=== PATIENT | male | born 1960 | race Caucasian/White ===

== ENCOUNTER 2020-11-28 10:56 | Observation (INO) | payer OTHER, SELFPAY ==
[2020-11-28 11:06] VITALS: BP 103/69; BP 104/69; PULSE 73; PULSE 76; RESP 20; RESP 22; TEMP 36.7; O2SAT 99
[2020-11-28 11:07] VITALS: BMI 33.0
--- NOTE | 2020-11-28 11:08 | USCV_ITS ---
Cosmo Blanc Age: 60 Gender: M : 1960 Exam Date: 11/28/2020 12:02 Ordering Phys: Steven Palomo MD Technologist: Ryland Beaver Exam Location: [facility] [place] Indication: AFB BP: 104 / 69 HR: 81 Rhythm: Sinus Technical Quality: Fair MEASUREMENTS (Male / Female) Normal Values 2D ECHO LV Diastolic Diameter PLAX 4.2 cm 4.2 - 5.9 / 3.9 - 5.3 cm LV Systolic Diameter PLAX 2.7 cm IVS Diastolic Thickness 1.3 cm 0.6 - 1.0 / 0.6 - 0.9 cm IVS Systolic Thickness 1.5 cm LVPW Diastolic Thickness 1.5 cm 0.6 - 1.0 / 0.6 - 0.9 cm LVPW Systolic Thickness 2.1 cm LVOT Diameter 2.1 cm LV Ejection Fraction 2D Teich 65.4 % LV Ejection Fraction MOD 2C 60.4 % LV Ejection Fraction 2C AL 61.6 % LA Diameter 3.6 cm LA Width 3.6 cm LA Height 5.3 cm RA Width 4.3 cm RA Height 4.6 cm Aorta at Sinotubular Diameter 3.0 cm M-MODE LV Diastolic Diameter MM 6.1 cm 4.2 - 5.9 / 3.9 - 5.3 cm LV Systolic Diameter MM 3.9 cm LV Ejection Fraction MM Teich 66.1 % IVS Diastolic Thickness MM 1.0 cm 0.6 - 1.0 / 0.6 - 0.9 cm IVS Systolic Thickness MM 1.9 cm LVPW Diastolic Thickness MM 1.5 cm 0.6 - 1.0 / 0.6 - 0.9 cm LVPW Systolic Thickness MM 2.0 cm Aortic Annulus Diameter 3.6 cm LA Ao Ratio MM 1.0 MV E Point Septal Separation 1.3 cm DOPPLER AV Peak Velocity 87.0 cm/s LVOT Peak Velocity 96.0 cm/s AV Area Cont Eq vti 4.1 cm squared AV Area Cont Eq pk 3.7 cm squared MV Area PHT 3.5 cm squared Mitral E to A Ratio 3.1 MV E' Velocity 41.5 cm/s Mitral E to MV E' Ratio 13.7 Mitral E to LV E' Lateral Ratio 12.6 Mitral E to LV E' Septal Ratio 15.3 TR Peak Velocity 69.0 cm/s TR Peak Gradient 1.9 mmHg Right Atrial Pressure 3.0 mmHg Pulmonary Artery Systolic Pressu 4.9 mmHg PV Peak Velocity 74.0 cm/s RV Acceleration Time 0.1 s RV Ejection Time 0.3 s RV AcT/ET 0.4 FINDINGS Left Ventricle Normal left ventricular cavity size. Normal left ventricular systolic function. No regional wall motion abnormalities. Left ventricular ejection fraction is estimated at 55 %. The presence of atrial fibrillation diastolic function cannot be assessed accurately. Right Ventricle The right ventricle is normal in size and function. Right Atrium The right atrium is normal in size. Left Atrium The left atrium is normal in size. Mitral Valve Structurally normal mitral valve without significant stenosis or prolapse. There is no mitral regurgitation. Aortic Valve Moderate aortic valve calcification. No aortic valve regurgitation. No aortic valve stenosis. Tricuspid Valve Structurally normal tricuspid valve without significant stenosis or regurgitation. Pulmonary artery systolic pressure is normal. Pulmonic Valve Structurally normal pulmonic valve without significant stenosis. There is no pulmonic regurgitation. Pericardium Normal pericardium without effusion. Aorta Normal ascending aorta dimension. CONCLUSIONS 1-Normal left ventricular cavity size. Normal left ventricular systolic function. No regional wall motion abnormalities. Left ventricular ejection fraction is estimated at 55 %. The presence of atrial fibrillation diastolic function cannot be assessed accurately. 2-Moderate aortic valve calcification. No aortic valve regurgitation. No aortic valve stenosis. 3-There is no pericardial effusion. 4-Pulmonary artery systolic pressure is within normal limits. 5-There are no prior echocardiogram studies to compare. Davis Anderson MD (Electronically Signed) Final Date: 28 November 2020 16:49 S
--- NOTE | 2020-11-28 11:09 | ECG_ITS ---
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 Measurements Intervals [place] Rate: 84 P: [place]: QRS: 54 QRSD: 89 T: 3 QT: 338 QTc: 401 Interpretive Statements ATRIAL FIBRILLATION NONSPECIFIC T-WAVE ABNORMALITY No previous ECG available for comparison Electronically Signed On 11-28-2020 16:02:47 ANIMAL SERVICES OFFICER by Vinicio Mares M.D. [id number]
--- NOTE | 2020-11-28 11:26 | PM.HP ---
Providers/Chief Complaint Admitting Physician: Steven Palomo MD Primary Care Provider: Bryant Carlin Chief Complaint: Afib with RVR History of Present Illness Cosmo Blanc is a 60 year old male transferred from [facility] in [place] with history of syncope. Patient is not for sure exactly when it happened but believes it was likely around 415 or 30 this morning. He denies any chest pain or palpitations. Upon arriving into the emergency department he was noted to be in atrial fibrillation with rapid ventricular rate. Patient reports a history of atrial fibrillation for quite some time. He denies being on any anticoagulation and relates he is usually well controlled on metoprolol but at his last visit with the [place] doctor his heart rate was elevated and irregular. Currently he denies any symptoms. While in the emergency department he received 2 doses of Cardizem and was ultimately put on a Cardizem drip. He remains in atrial fibrillation but on arrival here his heart rate was mid 70s. He denies any history of myocardial infarction. He believes his last echocardiogram was over 5 years ago. He denies any personal history of Covid or exposure to it. Review of Systems General: Reports: 10 or more systems reviewed and unremarkable except in HPI and below Const: Denies: fever(s) Eyes: Denies: change in vision ENMT: Denies: throat pain Card: Reports: syncope; Denies: chest pain Resp: Denies: dyspnea GI: Denies: abdominal pain : Denies: flank pain Musc: Denies: neck pain Skin/Breast: Denies: rash Neuro: Denies: headache(s) Psych: Denies: anxiety Endo: Denies: polyuria Lobo/Lymph: Denies: easy bruising All/Imm: Denies: urticaria Medications/Allergies Home Medications Medication Instructions Recorded Confirmed Last Taken Type metoprolol tartrate 12.5 mg PO BID 11/28/20 11/28/20 11/27/20 20:30 History Allergies Allergy/AdvReac Type Severity Reaction Status Date / Time Penicillins Allergy ALGY-Anaphy Verified 11/28/20 11:14 laxis PFSH Acute PFSH: Medical History (Updated 11/28/20 @ 11:28 by Steven Palomo MD) Atrial fibrillation Surgical History (Updated 11/28/20 @ 11:28 by Steven Palomo MD) History of cholecystectomy Family History (Updated 11/28/20 @ 11:28 by Steven Palomo MD) Other CAD (coronary artery disease) Cancer Social History (Updated 11/28/20 @ 11:29 by Steven Palomo MD) Smoking and tobacco status: current every day smoker smokeless tobacco Alcohol intake: former Vitals/I&O/Wt Last Vital Signs Temp 98.1 F 11/28/20 11:06 Pulse 76 11/28/20 11:06 Resp 22 H 11/28/20 11:06 BP 104/69 11/28/20 11:06 Pulse Ox 99 11/28/20 11:06 Weight last 48 hrs Weight 123.377 kg Physical Exam Narrative: EXAM NARRATIVE: General exam is a white male in no apparent distress HEENT: Pupils equally round. Oropharynx clear. Neck is supple no lymphadenopathy or thyromegaly Cardiovascular irregular, irregular without murmur Lungs clear no wheezing or crackles Abdomen is soft, positive bowel sounds. No obvious organomegaly was deferred Extremities no cyanosis clubbing or edema, cap refill brisk Skin no rash Neuro no obvious focal deficits. Data Other data: INR 1.0. White blood cell count 7.7, hemoglobin 15.1, platelet count 183 Sodium 138, potassium 4.4, chloride 102, bicarb 25, BUN 17, creatinine 1.1, glucose 121, LFTs normal, BNP 1700, troponin IX Covid antigen negative EKG demonstrates atrial fibrillation, normal axis, rate of 145, nonspecific ST-T wave changes Chest x-ray negative A&P Assessment and plan (1) Atrial fibrillation: Transition from Cardizem drip to metoprolol 25 mg twice daily Telemetry Check magnesium, TSH Check echocardiogram Full anticoagulation currently, and will discuss with patient CHADS scoring at discharge. Status: Acute Additional A&P Information Full code Lovenox will suffice for DVT prophylaxis Attestations Medical Necessity Statement*: Will need less than 2 midnight stay for evaluation and treatment of patient with rapid ventricular rate as well as syncope. Time Spent in Patient Care: Greater than 35 minutes Coding Level of Care Code Acute Cloth Hand for g Fwd Diagnoses Atrial fibrillation I48.91
[2020-11-28] MEDS: metoprolol tartrate 25 mg Tablet PO ×2 (11:49→20:38)
[2020-11-28 12:00] VITALS: BP 104/69; PULSE 84; RESP 16; TEMP 36.8; O2SAT 95
[2020-11-28 12:59] LABS: Troponin(5th) Baseline 9 ng/L (0-15)
[2020-11-28 13:08] LABS: Magnesium 2.1 mg/dL (1.7-2.3)
--- NOTE | 2020-11-28 13:09 | ECG_ITS ---
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 Measurements Intervals [place] Rate: 86 P: [place]: QRS: 69 QRSD: 90 T: 31 QT: 357 QTc: 429 Interpretive Statements ATRIAL FIBRILLATION Compared to ECG 11/28/2020 11:50:37 T-wave abnormality no longer present Electronically Signed On 11-28-2020 16:04:42 BLOCK ENGRAVER by Vinicio Mares M.D. [email or web address] The Fireglendale [email or web address] medical [email or web address]/[id number]
[2020-11-28 16:00] VITALS: BP 111/79; PULSE 69; RESP 19; TEMP 36.7; O2SAT 96
[2020-11-28 16:05] LABS: Troponin 5 2HR 9.69 ng/L (0-15); Troponin 5 2HR Delta 0.69 ABS# (0-10)
--- NOTE | 2020-11-28 17:09 | ECG_ITS ---
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 Measurements Intervals [place] Rate: 92 P: [place]: QRS: 48 QRSD: 91 T: 29 QT: 345 QTc: 427 Interpretive Statements ATRIAL FIBRILLATION NONSPECIFIC T-WAVE ABNORMALITY Compared to ECG 11/28/2020 14:02:29 T-wave abnormality now present Electronically Signed On 11-28-2020 17:53:19 DRESS CUTTER by Vinicio Mares M.D. [email or web address] Seismic Technologiesmercy health st. anne hospitalGT Solar/store/[id number]
--- NOTE | 2020-11-28 19:35 | ECG_ITS ---
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 Measurements Intervals [place] Rate: 66 P: 33 PA: 187 QRS: 35 QRSD: 94 T: 31 QT: 388 QTc: 407 Interpretive Statements SINUS RHYTHM POSSIBLE LEFT ATRIAL ENLARGEMENT [-0.1mV P WAVE IN V1/V2] Compared to ECG 11/28/2020 17:46:32 Atrial fibrillation no longer present T-wave abnormality no longer present Electronically Signed On 11-30-2020 19:27:47 MARKETING ANALYST by Sherrell Davila M.D. [id number] f
[2020-11-28 20:00] VITALS: BP 107/58; PULSE 76; PULSE 96; RESP 19; TEMP 36.6; O2SAT 97
[2020-11-28 21:15] VITALS: PULSE 66
[2020-11-29] VITALS (7 sets, daily range): BP systolic 97–128; BP diastolic 57–75; PULSE 62–76; RESP 13–19; TEMP 36.6–36.9; O2SAT 93–97
--- NOTE | 2020-11-29 00:34 | PC.NURSE ---
PT IS RESTING IN BED. PT DENIES PAIN AT THIS TIME. WILL CONTINUE TO MONITOR.
[2020-11-29 04:03] LABS: Basophils # 0.1 10^3/uL (0.0-0.1); Eosinophils # 0.2 10^3/uL (0.0-0.8); Hematocrit 39.8 % (42.0-52.0); Hemoglobin 13.2 g/dL (11.7-16.6); Lymphocytes # 1.9 10^3/uL (0.8-4.8); Lymphocytes % 27.1 %; Mean Corpuscular HGB Conc 33.2 g/dL (30.0-36.0); Mean Corpuscular Hemoglobin 31.4 pg (28.0-34.0); Mean Corpuscular Volume 94.5 fL (80-94); Mean Platelet Volume 11.6 fL (7.4-10.4); Monocytes # 0.5 10^3/uL (0.2-0.9); Monocytes % 7.7 %; Neutrophils # 4.26 10^3/uL (1.8-7.7); Neutrophils % 60.5 %; Nucleated Red Blood Cells % 0 %; Platelet Count 156 10^3/cmm (130-400); Red Blood Count 4.21 10^6/uL (4.1-5.3); Red Cell Distribution Width 13.1 % (12.1-15.1)
[2020-11-29 04:33] LABS: Alanine Aminotransferase 17 U/L (0-41); Albumin Level 3.5 g/dL (3.5-5.2); Alkaline Phosphatase 50 IU/L (40-130); Anion Gap 12.3 (5-19); Aspartate Amino Transferase 13 U/L (0-40); Blood Urea Nitrogen 23 mg/dL (6-20); Calcium 8.7 mg/dL (8.5-10.5); Carbon Dioxide 27 mmol/L (22-29); Chloride 103 mmol/L (98-107); Globulin 2.5 g/dL (1.3-4.6); Glomerular Filtration Rate 76.7 mL/min (90-130); Glucose 106 mg/dL (65-115); Osmolality Calculated 290 mOsm/kg (285-295); Potassium 4.3 mmol/L (3.5-5.1); Sodium 138 mmol/L (136-145); Total Bilirubin 0.5 mg/dL (0.15-1.2)
--- NOTE | 2020-11-29 06:54 | PC.NURSE ---
PT HAD AN UNEVENTFUL NIGHT. PT DENIES PAIN. WILL CONTINUE TO MONITOR.
[2020-11-29] MEDS: metoprolol tartrate 25 mg Tablet PO (08:04)
[2020-11-29] MEDS: acetaminophen 325 mg Tablet 650 MG PO (08:08)
--- NOTE | 2020-11-29 09:15 | P.DS_ITS ---
Discharge Providers Date of Admission: 11/28/20 10:56 Date of Discharge: November 29, 2020 Attending Provider at Admission: Steven Palomo MD Attending Provider at Discharge: Steven Palomo MD Primary Care Provider: Bryant Carlin Diagnoses at Discharge Discharge Diagnosis (1) Atrial fibrillation: Status: Acute Reason for Visit Reason for Visit: Afib with RVR Hospital Course Hospital Course Cosmo is a 60-year-old white male who presented to the hospital as a transfer from [facility] with atrial fibrillation with rapid ventricular rate noted after a syncopal episode. In the emergency department he was given Cardizem and placed on a Cardizem drip. On arrival here heart rate was approximately 70s on the Cardizem drip. He was converted to metoprolol 25 mg twice daily, twice his usual home dose. Patient has a past history of atrial fibrillation, not on anticoagulation. With this his heart rhythm was controlled, and he ultimately converted to normal sinus rhythm which was noted on day of discharge November 29 with a heart rate of 60. He denied any dizziness when up and around. No significant arrhythmias other than atrial fibrillation were noted overnight prior to his spontaneous cardioversion. His [id number] score is 0. He was discharged on metoprolol, and aspirin daily, and follow-up with his primary care provider as well as [place] frozen food selector. It should be noted that his TSH was normal on admission as well as electrolytes including magnesium. Echocardiogram done demonstrated preserved EF with no wall motion abnormalities. Physical Exam Narrative: EXAM NARRATIVE: General exam no apparent distress Cardiovascular regular in rhythm without murmur Lungs clear Abdomen soft with positive bowel sounds Extremities no cyanosis clubbing or edema Discharge Data Data Completed and Pending: Completed Studies During Hospitalization Category Date Time Status CV echo complete* [id number] Routine Ultrasound 11/28/20 11:08 Completed Labs from last 24 hours 11/29/20 11/29/20 11/28/20 03:34 03:34 15:00 WBC 7.0 RBC 4.21 Hgb 13.2 Hct 39.8 L MCV 94.5 H MCH 31.4 MCHC 33.2 RDW 13.1 Plt Count 156 MPV 11.6 H Neut % (Auto) 60.5 Lymph % (Auto) 27.1 Storey % (Auto) 7.7 Eos % (Auto) 3.0 Baso % (Auto) 1.0 Neut # (Auto) 4.26 Lymph # (Auto) 1.9 Storey # (Auto) 0.5 Eos # (Auto) 0.2 Baso # (Auto) 0.1 Nucleated RBC % (a uto) 0 Nucleated RBCs # 0.0 Sodium 138 Potassium 4.3 Chloride 103 Carbon Dioxide 27 Anion Gap 12.3 BUN 23 H Creatinine 1.0 GFR Calculation 76.7 L Glucose 106 Calculated Osmolal ity 290 Calcium 8.7 Magnesium 2.0 Total Bilirubin 0.5 AST 13 ALT 17 Alkaline Phosphata se 50 Troponin T Baselin e Troponin T 120 Min [place] lions 9.69 Delta Troponin T 0.69 Total Protein 6.0 L Albumin 3.5 Globulin 2.5 TSH 11/28/20 11/28/20 12:22 12:22 WBC RBC Hgb Hct MCV MCH MCHC RDW Plt Count MPV Neut % (Auto) Lymph % (Auto) Storey % (Auto) Eos % (Auto) Baso % (Auto) Neut # (Auto) Lymph # (Auto) Storey # (Auto) Eos # (Auto) Baso # (Auto) Nucleated RBC % (a uto) Nucleated RBCs # Sodium Potassium Chloride Carbon Dioxide Anion Gap BUN Creatinine GFR Calculation Glucose Calculated Osmolal ity Calcium Magnesium 2.1 Total Bilirubin AST ALT Alkaline Phosphata se Troponin T Baselin e 9 Troponin T 120 Min [place] lions Delta Troponin T Total Protein Albumin Globulin TSH 0.70 Vitals: Last Vital Signs Temp 98.5 F 11/29/20 07:28 Pulse 63 11/29/20 07:28 Resp 18 11/29/20 07:28 BP 128/75 11/29/20 07:28 Pulse Ox 95 11/29/20 07:28 Discharge Plan Discharge Patient Disposition: Home Condition: Stable Prescriptions: New metoprolol tartrate 25 mg Tablet 25 mg PO BID@0900,2100 Qty: 60 RF: 0 aspirin 81 mg tablet,chewable 81 mg PO DAILY Qty: 30 RF: 0 Discontinued metoprolol tartrate 25 mg Tablet 12.5 mg PO BID RF: 0 Discharge Orders: Discharge Order (Routine); Ordered 11/29/20 Ordered By: Steven Palomo Referrals: Bryant Carlin [Primary Care Provider] - 4-7 days Discharge Diet: Regular Discharge Activity: Increase activity as tolerated Activity Restrictions/Additional Instructions: Reduce caffeine, avoid stress, no alcohol. Your [facility] doctor to arrange follow-up with cardiology regarding your atrial fibrillation Discharge Attestations Time Spent in Discharge Care*: greater than 30 min Quality Metrics Clinical Quality Measures During this hospital stay, did patient experience: None Coding Level of Care Code Acute Shipping Track Supervisor for Rolfg Fwd Diagnoses Atrial fibrillation I48.91
--- NOTE | 2020-11-29 11:17 | PC.NURSE ---
Ambulation Pt has been up and moing around in room and hallways. Pt denies any dizziness, pain or sob. Pt HR upon this activity ranges from 70s to 80s in SR.
--- NOTE | 2020-11-29 11:19 | PC.NURSE ---
Discharge to home Instructed pt the importance of following up with his [facility] doctor and to take the meds as prescribed. Informed pt to check and record his BP and HR twice a day at home. Discuss to pt prevention of syncope. Informed pt to monitor any worsening of symptoms and to notify his provider for any concerns. Pt verbalizes understanding. Discharge packet provided to pt.
--- NOTE | 2020-11-29 17:23 | PC.RESP ---
Smoking Cessation information sent to patient.
== END 2020-11-29 11:19 | disposition home or self-care (01) ==
PROVIDERS: Admitting Provider Internal Medicine; PCP Family Medicine; Visit Provider Internal Medicine
DX: I48.91 Unspecified atrial fibrillation (principal); Z82.49 Family history of ischemic heart disease and other diseases of the circulatory system; F17.210 Nicotine dependence, cigarettes, uncomplicated
CPT/HCPCS: 12345; 36415; 80053; 83735; 84443; 84484; 85025; 93005; 93306; 96365; 96375; G0378; G0379

== ENCOUNTER 2020-12-09 17:15 | Observation (INO) | payer OTHER, SELFPAY ==
[2020-12-09] VITALS (13 sets, daily range): BP systolic 98–125; BP diastolic 63–83; PULSE 61–145; RESP 14–23; TEMP 36.3; O2SAT 95–100; BMI 32.5
--- NOTE | 2020-12-09 17:39 | XR_ITS ---
WS: [id number] Exam: XR chest 1V portable [id number] Date/Time of Exam: 12/09/2020 5:46 PM Reason For Exam: a fib rvr Findings: The lungs are clear and fully expanded. Costophrenic angles are sharp. No infiltrates. Bronchovascula r relief appears normal. Cardiac silhouette is unremarkable. Bony elements are intact. XR/XR chest 1V portable [id number] IMPRESSION: Unremarkable chest radiograph.
--- NOTE | 2020-12-09 17:40 | ECG_ITS ---
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 Measurements Intervals [place] Rate: 143 P: CT: QRS: 52 QRSD: 85 T: 0 QT: 196 QTc: 303 Interpretive Statements ATRIAL FLUTTER WITH RAPID VENTRICULAR RESPONSE NONSPECIFIC ST & T-WAVE ABNORMALITY Compared to ECG 11/28/2020 19:39:15 T-wave abnormality now present Sinus rhythm no longer present Electronically Signed On 12-10-2020 5:56:03 LATHE OPERATOR by Jaimee Cornejo M.D. [id number] f
--- NOTE | 2020-12-09 17:45 | PC.PHAR ---
pt states he only takes the two medications aspirin and metoprolol-
[2020-12-09 18:01] LABS: Basophils # 0.1 10^3/uL (0.0-0.1); Basophils % 0.9 %; Eosinophils # 0.2 10^3/uL (0.0-0.8); Eosinophils % 2.4 %; Hematocrit 40.6 % (42.0-52.0); Hemoglobin 13.6 g/dL (11.7-16.6); Lymphocytes # 2.2 10^3/uL (0.8-4.8); Lymphocytes % 29.7 %; Mean Corpuscular HGB Conc 33.5 g/dL (30.0-36.0); Mean Corpuscular Hemoglobin 31.6 pg (28.0-34.0); Mean Corpuscular Volume 94.2 fL (80-94); Mean Platelet Volume 11.2 fL (7.4-10.4); Monocytes # 0.6 10^3/uL (0.2-0.9); Monocytes % 7.6 %; Neutrophils # 4.32 10^3/uL (1.8-7.7); Neutrophils % 58.7 %; Nucleated Red Blood Cells % 0 %; Platelet Count 155 10^3/cmm (130-400); Red Blood Count 4.31 10^6/uL (4.1-5.3); Red Cell Distribution Width 12.9 % (12.1-15.1); White Blood Count 7.4 10^3/uL (4.0-10.0)
[2020-12-09 18:20] LABS: Troponin(5th) Baseline 10 ng/L (0-15)
[2020-12-09 18:30] LABS: Alanine Aminotransferase 18 U/L (0-41); Albumin Level 4.3 g/dL (3.5-5.2); Alkaline Phosphatase 57 IU/L (40-130); Anion Gap 14.8 (5-19); Aspartate Amino Transferase 16 U/L (0-40); Blood Urea Nitrogen 14 mg/dL (6-20); Calcium 9.4 mg/dL (8.5-10.5); Carbon Dioxide 23 mmol/L (22-29); Chloride 103 mmol/L (98-107); Globulin 2.2 g/dL (1.3-4.6); Glomerular Filtration Rate 86.7 mL/min (90-130); Glucose 74 mg/dL (65-115); NT Pro B Type Natriuretic Pept 188 pg/mL (0-125); Osmolality Calculated 283 mOsm/kg (285-295); Potassium 3.8 mmol/L (3.5-5.1); Sodium 137 mmol/L (136-145); Thyroid Stimulating Hormone 1.56 uIU/mL (0.27-4.20); Total Bilirubin 0.6 mg/dL (0.15-1.2); Total Protein 6.5 g/dL (6.6-8.7)
[2020-12-09 18:32] LABS: D Dimer 0.48 ug/mIFEU (0-0.59)
--- NOTE | 2020-12-09 18:59 | PC.NURSE ---
cardizem IVP over 2min
[2020-12-09 19:06] LABS: Add Urine Microscopic? YES; Bilirubin Urine Neg (Negative); Blood Urine Neg (Negative); Glucose Urine UA Norm (Normal); Ketones Urine Negative (Negative); Leukocyte Esterase Urine Negative (Negative); Nitrate Urine Negative (Negative); Protein Urine Trace (Negative); Specific Gravity, Urine 1.005 (1.005-1.030); Urine Appearance Clear (CLEAR); Urine Color Straw (Yellow); Urobilinogen Urine Norm (Negative); pH Urine 6.5 (5-7)
[2020-12-09 19:12] LABS: Add Urine Culture? No; Bacteria Urine TRACE /hpf; WBC Urine RARE /hpf (0-5)
--- NOTE | 2020-12-09 19:34 | PC.NURSE ---
report received from TAY Carranza and care transferred to TAY Blackburn
--- NOTE | 2020-12-09 19:36 | PC.NURSE ---
Report received from TAY Carranza and care transferred to TAY Blackburn
[2020-12-09 20:14] LABS: Troponin 5 2HR 12.66 ng/L (0-15); Troponin 5 2HR Delta 2.66 ABS# (0-10)
--- NOTE | 2020-12-09 23:08 | ED_ITS ---
Documented by User: Andrew Douglass MD 12/10/20 11:48 HPI - Chest Pain General: Chief Complaint: Chest Pain Stated Complaint: CHEST PAIN Time Seen by Provider: 12/09/20 17:27 History of Present Illness: HPI narrative: The patient is a 60-year-old male with past medical history atrial fibrillation admitted 2 weeks ago with A. fib with RVR. He comes to the ER after he was at [facility] and he felt palpitations and short of breath. EKG on arrival shows A. fib with RVR rate in the 140s. He was started on diltiazem Onset (ago): hour(s) (1) Timing of current episode: constant Prior episodes: Yes Onset: during rest Pain location: substernal and left chest Pain radiation: none Severity: moderate Quality: tightness Relieving factors: nothing Exacerbating factors: exertion Associated symptoms: Reports no associated symptoms and dyspnea; Deny abdominal pain or palpitations Review of Systems General: Reports: 10 or more systems reviewed and unremarkable except in HPI and below Const: Denies: fatigue Eyes: Denies: change in vision, blurry vision or eye redness ENMT: Denies: throat pain, swelling of lips/tongue, ear or mastoid pain or nasal congestion Card: Denies: chest pain, palpitations, irregular heart rhythm, edema, dyspnea on exertion or orthopnea Resp: Reports: dyspnea; Denies: productive cough or non-productive cough GI: Denies: abdominal pain, diarrhea or GI cramping : Denies: flank pain, urinary frequency or urinary urgency Musc: Denies: neck pain, back pain, extremity pain, joint pain, joint redness, limited range of motion or muscle weakness Skin/Breast: Denies: rash, pruritus, erythema, skin pain or skin tenderness Neuro: Denies: headache(s), numbness in extremities, weakness in extremities, sensory changes, difficulty walking, dizziness, confusion or Slurred speech present Psych: Denies: anxiety or depression Endo: Denies: polyuria All/Imm: Denies: urticaria, throat swelling or tongue swelling PFSH ED PFSH: Medical History Atrial fibrillation Surgical History History of cholecystectomy Family History Other CAD (coronary artery disease) Cancer Social History (Updated 12/10/20 @ 00:23 by Davis Mart MD) Smoking and tobacco status: current every day smoker smokeless tobacco Alcohol intake: former Substance/Drug Use: never Household members: spouse Housing: House Current occupational status: other Details: 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 Physical Exam Const: COMMON NORMALS: no acute distress, average body habitus, patient oriented x3, no limitations, healthy appearing, alert and well nourished GENERAL APPEARANCE: cooperative, comfortable, well kempt and well developed ORIENTATION/CONSCIOUSNESS: Yes awake, Yes oriented to person, Yes oriented to place and Yes oriented to time HENMT: COMMON NORMALS: normocephalic, external ears normal and Normal external nose present HEAD & SCALP: normal to inspection and normocephalic NOSE: Normal external nose present EXTERNAL EAR: Yes external ears normal MOUTH: Normal oral and palatal mucosa present THROAT: posterior oropharynx normal Eye: COMMON NORMALS: Equal, round and reactive pupils present and EOMs intact bilaterally GENERAL EYE: appearance normal, both eyes and all related structures PUPIL: Yes Equal, round and reactive pupils present Neck/C-Spine: COMMON NORMALS: full ROM, no lymphadenopathy, no meningeal signs and no JVD GENERAL: Yes normal visual inspection Lymph: LYMPHATIC: no lymphadenopathy noted Chest: COMMONS NORMALS: normal inspection of the chest and normal palpation of entire chest wall Resp: COMMON NORMALS: normal respiratory effort, No retractions, No use of accessory muscles, clear to auscultation bilaterally and percussion normal EFFORT & INSPECTION: Yes able to speak in complete sentences AUSCULTATION: clear to auscultation bilaterally PERCUSSION: percussion normal Cardio: COMMON NORMALS: no JVD, S1 normal heart sound present, S2 normal heart sound present and Peripheral pulses 2+ throughout RATE: tachycardic RHYTHM: abnormal rhythm irregularly irregular HEART SOUNDS: S1 normal heart sound present and S2 normal heart sound present PERIPHERAL PULSES: Peripheral pulses 2+ throughout OTHER: A. fib RVR rate 140s. After diltiazem drip he normalized with rate in the 70s. GI: COMMON NORMALS: Normal to inspection, nondistended, normoactive bowel sounds present, Soft to palpation, non-tender and no masses INSPECTION: Yes normal to inspection PALPATION: Yes Soft to palpation : COMMON NORMALS: Yes no CVA tenderness BLADDER/KIDNEY EXAM: Yes no CVA tenderness Back/Pelvis: COMMON NORMALS: no CVA tenderness, thoracic and lumbar spine normal to inspection, no thoracic nor lumbar tenderness and thoraco-lumbar ROM normal Extremity: COMMON NORMALS: normal to inspection, full ROM, capillary refill normal, no joint enlargement and no pedal edema GENERAL: Yes normal exam except as noted Neuro: COMMON NORMALS: patient oriented x3, CN's II-XII intact bilaterally, moves all extremities, no focal motor deficits, no sensory deficits noted and gait normal SENSORIUM/ORIENTATION: Yes alert, Yes oriented to person, Yes oriented to place and Yes oriented to time MENINGEAL SIGNS: Yes no meningeal signs Psych: COMMON NORMALS: mental status grossly normal, Normal thought process present, cooperative, normal affect and speech normal APPEARANCE: Yes well kempt ATTITUDE: Yes calm SPEECH: Yes normal speech THOUGHT PROCESS: Normal thought process present Skin: COMMON NORMALS: no rashes or lesions noted GENERAL SKIN EXAM: no rashes or lesions noted Course Vital Signs: Vital signs: Vital Signs Temperature 98.4 F 12/10/20 11:09 Pulse Rate 66 12/10/20 11:09 Respiratory Rate 18 12/10/20 11:09 Blood Pressure 100/65 12/10/20 11:09 Pulse Oximetry 97 12/10/20 11:09 MDM - Chest Pain MDM Narrative: Medical decision making narrative: This patient came in in A. fib with RVR rate in the 140s. He was started on diltiazem bolus and drip and converted with rate in the 70s. The drip was turned down because of mild hypotension. Now the drip is turned off. His blood pressure is 111/65 with a rate of 63. He is stable. The goal is to see if he will be stable off the drip so he can be admitted to the last [facility] bed. Turned over care at shift change to Dr. Davenport Lab Data: Labs: Lab Results 12/09/20 12/09/20 12/09/20 Range/Units 17:10 17:52 17:52 WBC 7.4 (4.0-10.0) 10^3/ uL RBC 4.31 (4.1-5.3) 10^6/u L Hgb 13.6 (11.7-16.6) g/dL Hct 40.6 L (42.0-52.0) % MCV 94.2 H (80-94) fL MCH 31.6 (28.0-34.0) pg MCHC 33.5 (30.0-36.0) g/dL RDW 12.9 (12.1-15.1) % Plt Count 155 (130-400) 10^3/c mm MPV 11.2 H (7.4-10.4) fL Neut % (Auto) 58.7 % Lymph % (Auto) 29.7 % [place] % (Auto) 7.6 % Eos % (Auto) 2.4 % Baso % (Auto) 0.9 % Neut # (Auto) 4.32 (1.8-7.7) 10^3/u L Lymph # (Auto) 2.2 (0.8-4.8) 10^3/u L [place] # (Auto) 0.6 (0.2-0.9) 10^3/u L Eos # (Auto) 0.2 (0.0-0.8) 10^3/u L Baso # (Auto) 0.1 (0.0-0.1) 10^3/u L Nucleated RBC % (a uto) 0 % Nucleated RBCs # 0.0 /100WBC D-Dimer (0-0.59) ug/mIFE U Sodium 137 (136-145) mmol/L Potassium 3.8 (3.5-5.1) mmol/L Chloride 103 (98-107) mmol/L Carbon Dioxide 23 (22-29) mmol/L Anion Gap 14.8 (5-19) BUN 14 (6-20) mg/dL Creatinine 0.9 (0.7-1.2) mg/dL GFR Calculation 86.7 L (90-130) mL/min Glucose 74 (65-115) mg/dL Calculated Osmolal ity 283 L (285-295) mOsm/k g Lactate (0.5-2.2) mmol/L Calcium 9.4 (8.5-10.5) mg/dL Magnesium (1.7-2.3) mg/dL Total Bilirubin 0.6 (0.15-1.2) mg/dL AST 16 (0-40) U/L ALT 18 (0-41) U/L Alkaline Phosphata se 57 (40-130) IU/L Troponin T Baselin e (0-15) ng/L Troponin T 120 Min [place] (0-15) ng/L Delta Troponin T (0-10) ABS# Troponin T Hi Sens 6Hr (0-15) ng/L Troponin T Hi Sens 6Hr Delta (0-12) ng/L NT-Pro-B Natriuret Pep 188 H (0-125) pg/mL Total Protein 6.5 L (6.6-8.7) g/dL Albumin 4.3 (3.5-5.2) g/dL Globulin 2.2 (1.3-4.6) g/dL TSH 1.56 (0.27-4.20) uIU/ mL Urine Color Straw (Yellow) Urine Appearance Clear (CLEAR) Urine pH 6.5 (5-7) Ur Specific Gravit y 1.005 (1.005-1.030) Urine Protein Trace (Negative) Urine Glucose (UA) Norm (Normal) Urine Ketones Negative (Negative) Urine Blood Neg (Negative) Urine Nitrate Negative (Negative) Urine Bilirubin Neg (Negative) Urine Urobilinogen Norm (Negative) mg/dL Ur Leukocyte Suad ase Negative (Negative) Urine RBC None (0-2) /hpf Urine WBC Rare (0-5) /hpf Ur Squamous Epith Cells None (0-5) /hpf Amorphous Sediment Not Reportable Urine Bacteria Trace (NONE) /hpf 12/09/20 12/09/20 12/09/20 Range/Units 17:52 17:52 17:52 WBC (4.0-10.0) 10^3/ uL RBC (4.1-5.3) 10^6/u L Hgb (11.7-16.6) g/dL Hct (42.0-52.0) % MCV (80-94) fL MCH (28.0-34.0) pg MCHC (30.0-36.0) g/dL RDW (12.1-15.1) % Plt Count (130-400) 10^3/c mm MPV (7.4-10.4) fL Neut % (Auto) % Lymph % (Auto) % [place] % (Auto) % Eos % (Auto) % Baso % (Auto) % Neut # (Auto) (1.8-7.7) 10^3/u L Lymph # (Auto) (0.8-4.8) 10^3/u L [place] # (Auto) (0.2-0.9) 10^3/u L Eos # (Auto) (0.0-0.8) 10^3/u L Baso # (Auto) (0.0-0.1) 10^3/u L Nucleated RBC % (a uto) % Nucleated RBCs # /100WBC D-Dimer 0.48 (0-0.59) ug/mIFE U Sodium (136-145) mmol/L Potassium (3.5-5.1) mmol/L Chloride (98-107) mmol/L Carbon Dioxide (22-29) mmol/L Anion Gap (5-19) BUN (6-20) mg/dL Creatinine (0.7-1.2) mg/dL GFR Calculation (90-130) mL/min Glucose (65-115) mg/dL Calculated Osmolal ity (285-295) mOsm/k g Lactate 1.0 (0.5-2.2) mmol/L Calcium (8.5-10.5) mg/dL Magnesium (1.7-2.3) mg/dL Total Bilirubin (0.15-1.2) mg/dL AST (0-40) U/L ALT (0-41) U/L Alkaline Phosphata se (40-130) IU/L Troponin T Baselin e 10 (0-15) ng/L Troponin T 120 Min [place] (0-15) ng/L Delta Troponin T (0-10) ABS# Troponin T Hi Sens 6Hr (0-15) ng/L Troponin T Hi Sens 6Hr Delta (0-12) ng/L NT-Pro-B Natriuret Pep (0-125) pg/mL Total Protein (6.6-8.7) g/dL Albumin (3.5-5.2) g/dL Globulin (1.3-4.6) g/dL TSH (0.27-4.20) uIU/ mL Urine Color (Yellow) Urine Appearance (CLEAR) Urine pH (5-7) Ur Specific Gravit y (1.005-1.030) Urine Protein (Negative) Urine Glucose (UA) (Normal) Urine Ketones (Negative) Urine Blood (Negative) Urine Nitrate (Negative) Urine Bilirubin (Negative) Urine Urobilinogen (Negative) mg/dL Ur Leukocyte Suad ase (Negative) Urine RBC (0-2) /hpf Urine WBC (0-5) /hpf Ur Squamous Epith Cells (0-5) /hpf Amorphous Sediment Urine Bacteria (NONE) /hpf 12/09/20 12/09/20 12/09/20 Range/Units 19:40 23:42 23:42 WBC (4.0-10.0) 10^3/ uL RBC (4.1-5.3) 10^6/u L Hgb (11.7-16.6) g/dL Hct (42.0-52.0) % MCV (80-94) fL MCH (28.0-34.0) pg MCHC (30.0-36.0) g/dL RDW (12.1-15.1) % Plt Count (130-400) 10^3/c mm MPV (7.4-10.4) fL Neut % (Auto) % Lymph % (Auto) % [place] % (Auto) % Eos % (Auto) % Baso % (Auto) % Neut # (Auto) (1.8-7.7) 10^3/u L Lymph # (Auto) (0.8-4.8) 10^3/u L [place] # (Auto) (0.2-0.9) 10^3/u L Eos # (Auto) (0.0-0.8) 10^3/u L Baso # (Auto) (0.0-0.1) 10^3/u L Nucleated RBC % (a uto) % Nucleated RBCs # /100WBC D-Dimer (0-0.59) ug/mIFE U Sodium (136-145) mmol/L Potassium (3.5-5.1) mmol/L Chloride (98-107) mmol/L Carbon Dioxide (22-29) mmol/L Anion Gap (5-19) BUN (6-20) mg/dL Creatinine (0.7-1.2) mg/dL GFR Calculation (90-130) mL/min Glucose (65-115) mg/dL Calculated Osmolal ity (285-295) mOsm/k g Lactate (0.5-2.2) mmol/L Calcium (8.5-10.5) mg/dL Magnesium 2.0 (1.7-2.3) mg/dL Total Bilirubin (0.15-1.2) mg/dL AST (0-40) U/L ALT (0-41) U/L Alkaline Phosphata se (40-130) IU/L Troponin T Baselin e (0-15) ng/L Troponin T 120 Min [place] 12.66 (0-15) ng/L Delta Troponin T 2.66 (0-10) ABS# Troponin T Hi Sens 6Hr 15.08 H (0-15) ng/L Troponin T Hi Sens 6Hr Delta 5.08 (0-12) ng/L NT-Pro-B Natriuret Pep (0-125) pg/mL Total Protein (6.6-8.7) g/dL Albumin (3.5-5.2) g/dL Globulin (1.3-4.6) g/dL TSH (0.27-4.20) uIU/ mL Urine Color (Yellow) Urine Appearance (CLEAR) Urine pH (5-7) Ur Specific Gravit y (1.005-1.030) Urine Protein (Negative) Urine Glucose (UA) (Normal) Urine Ketones (Negative) Urine Blood (Negative) Urine Nitrate (Negative) Urine Bilirubin (Negative) Urine Urobilinogen (Negative) mg/dL Ur Leukocyte Suad ase (Negative) Urine RBC (0-2) /hpf Urine WBC (0-5) /hpf Ur Squamous Epith Cells (0-5) /hpf Amorphous Sediment Urine Bacteria (NONE) /hpf Discharge Plan Discharge Patient Disposition: Admitted As Inpatient Admit Provider: Davis Mart Clinical Impression: Atrial fibrillation, Chest pain Condition: Stable Coding Level of Care Code ED Bottom Stop Attacher for Chg Fwd Exam Comprehensive Documented by User: Horace Davenport MD 12/09/20 23:48 HPI - Chest Pain General: Chief Complaint: Chest Pain Stated Complaint: CHEST PAIN Time Seen by Provider: 12/09/20 17:27 PFS ED PFSH: Medical History Atrial fibrillation Surgical History History of cholecystectomy Family History Other CAD (coronary artery disease) Cancer Social History (Updated 12/10/20 @ 00:23 by Davis Mart MD) Smoking and tobacco status: current every day smoker smokeless tobacco Alcohol intake: former Substance/Drug Use: never Household members: spouse Housing: House Current occupational status: other Details: 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 Course Vital Signs: Vital signs: Vital Signs Temperature 98.4 F 12/10/20 11:09 Pulse Rate 66 12/10/20 11:09 Respiratory Rate 18 12/10/20 11:09 Blood Pressure 100/65 12/10/20 11:09 Pulse Oximetry 97 12/10/20 11:09 MDM - Chest Pain MDM Narrative: Medical decision making narrative: I took patient over from Dr. Colunga. He turned off his Cardizem drip and patient appears to have converted and currently has a heart rate of 66. Will admit here to [facility] as he is no longer on a drip. Patient stable for admission I spoke to the hospitalist at this time. Lab Data: Labs: Lab Results 12/09/20 12/09/20 12/09/20 Range/Units 17:10 17:52 17:52 WBC 7.4 (4.0-10.0) 10^3/ uL RBC 4.31 (4.1-5.3) 10^6/u L Hgb 13.6 (11.7-16.6) g/dL Hct 40.6 L (42.0-52.0) % MCV 94.2 H (80-94) fL MCH 31.6 (28.0-34.0) pg MCHC 33.5 (30.0-36.0) g/dL RDW 12.9 (12.1-15.1) % Plt Count 155 (130-400) 10^3/c mm MPV 11.2 H (7.4-10.4) fL Neut % (Auto) 58.7 % Lymph % (Auto) 29.7 % [place] % (Auto) 7.6 % Eos % (Auto) 2.4 % Baso % (Auto) 0.9 % Neut # (Auto) 4.32 (1.8-7.7) 10^3/u L Lymph # (Auto) 2.2 (0.8-4.8) 10^3/u L [place] # (Auto) 0.6 (0.2-0.9) 10^3/u L Eos # (Auto) 0.2 (0.0-0.8) 10^3/u L Baso # (Auto) 0.1 (0.0-0.1) 10^3/u L Nucleated RBC % (a uto) 0 % Nucleated RBCs # 0.0 /100WBC D-Dimer (0-0.59) ug/mIFE U Sodium 137 (136-145) mmol/L Potassium 3.8 (3.5-5.1) mmol/L Chloride 103 (98-107) mmol/L Carbon Dioxide 23 (22-29) mmol/L Anion Gap 14.8 (5-19) BUN 14 (6-20) mg/dL Creatinine 0.9 (0.7-1.2) mg/dL GFR Calculation 86.7 L (90-130) mL/min Glucose 74 (65-115) mg/dL Calculated Osmolal ity 283 L (285-295) mOsm/k g Lactate (0.5-2.2) mmol/L Calcium 9.4 (8.5-10.5) mg/dL Magnesium (1.7-2.3) mg/dL Total Bilirubin 0.6 (0.15-1.2) mg/dL AST 16 (0-40) U/L ALT 18 (0-41) U/L Alkaline Phosphata se 57 (40-130) IU/L Troponin T Baselin e (0-15) ng/L Troponin T 120 Min [place] (0-15) ng/L Delta Troponin T (0-10) ABS# Troponin T Hi Sens 6Hr (0-15) ng/L Troponin T Hi Sens 6Hr Delta (0-12) ng/L NT-Pro-B Natriuret Pep 188 H (0-125) pg/mL Total Protein 6.5 L (6.6-8.7) g/dL Albumin 4.3 (3.5-5.2) g/dL Globulin 2.2 (1.3-4.6) g/dL TSH 1.56 (0.27-4.20) uIU/ mL Urine Color Straw (Yellow) Urine Appearance Clear (CLEAR) Urine pH 6.5 (5-7) Ur Specific Gravit y 1.005 (1.005-1.030) Urine Protein Trace (Negative) Urine Glucose (UA) Norm (Normal) Urine Ketones Negative (Negative) Urine Blood Neg (Negative) Urine Nitrate Negative (Negative) Urine Bilirubin Neg (Negative) Urine Urobilinogen Norm (Negative) mg/dL Ur Leukocyte Suad ase Negative (Negative) Urine RBC None (0-2) /hpf Urine WBC Rare (0-5) /hpf Ur Squamous Epith Cells None (0-5) /hpf Amorphous Sediment Not Reportable Urine Bacteria Trace (NONE) /hpf 12/09/20 12/09/20 12/09/20 Range/Units 17:52 17:52 17:52 WBC (4.0-10.0) 10^3/ uL RBC (4.1-5.3) 10^6/u L Hgb (11.7-16.6) g/dL Hct (42.0-52.0) % MCV (80-94) fL MCH (28.0-34.0) pg MCHC (30.0-36.0) g/dL RDW (12.1-15.1) % Plt Count (130-400) 10^3/c mm MPV (7.4-10.4) fL Neut % (Auto) % Lymph % (Auto) % [place] % (Auto) % Eos % (Auto) % Baso % (Auto) % Neut # (Auto) (1.8-7.7) 10^3/u L Lymph # (Auto) (0.8-4.8) 10^3/u L [place] # (Auto) (0.2-0.9) 10^3/u L Eos # (Auto) (0.0-0.8) 10^3/u L Baso # (Auto) (0.0-0.1) 10^3/u L Nucleated RBC % (a uto) % Nucleated RBCs # /100WBC D-Dimer 0.48 (0-0.59) ug/mIFE U Sodium (136-145) mmol/L Potassium (3.5-5.1) mmol/L Chloride (98-107) mmol/L Carbon Dioxide (22-29) mmol/L Anion Gap (5-19) BUN (6-20) mg/dL Creatinine (0.7-1.2) mg/dL GFR Calculation (90-130) mL/min Glucose (65-115) mg/dL Calculated Osmolal ity (285-295) mOsm/k g Lactate 1.0 (0.5-2.2) mmol/L Calcium (8.5-10.5) mg/dL Magnesium (1.7-2.3) mg/dL Total Bilirubin (0.15-1.2) mg/dL AST (0-40) U/L ALT (0-41) U/L Alkaline Phosphata se (40-130) IU/L Troponin T Baselin e 10 (0-15) ng/L Troponin T 120 Min [place] (0-15) ng/L Delta Troponin T (0-10) ABS# Troponin T Hi Sens 6Hr (0-15) ng/L Troponin T Hi Sens 6Hr Delta (0-12) ng/L NT-Pro-B Natriuret Pep (0-125) pg/mL Total Protein (6.6-8.7) g/dL Albumin (3.5-5.2) g/dL Globulin (1.3-4.6) g/dL TSH (0.27-4.20) uIU/ mL Urine Color (Yellow) Urine Appearance (CLEAR) Urine pH (5-7) Ur Specific Gravit y (1.005-1.030) Urine Protein (Negative) Urine Glucose (UA) (Normal) Urine Ketones (Negative) Urine Blood (Negative) Urine Nitrate (Negative) Urine Bilirubin (Negative) Urine Urobilinogen (Negative) mg/dL Ur Leukocyte Suad ase (Negative) Urine RBC (0-2) /hpf Urine WBC (0-5) /hpf Ur Squamous Epith Cells (0-5) /hpf Amorphous Sediment Urine Bacteria (NONE) /hpf 12/09/20 12/09/20 12/09/20 Range/Units 19:40 23:42 23:42 WBC (4.0-10.0) 10^3/ uL RBC (4.1-5.3) 10^6/u L Hgb (11.7-16.6) g/dL Hct (42.0-52.0) % MCV (80-94) fL MCH (28.0-34.0) pg MCHC (30.0-36.0) g/dL RDW (12.1-15.1) % Plt Count (130-400) 10^3/c mm MPV (7.4-10.4) fL Neut % (Auto) % Lymph % (Auto) % [place] % (Auto) % Eos % (Auto) % Baso % (Auto) % Neut # (Auto) (1.8-7.7) 10^3/u L Lymph # (Auto) (0.8-4.8) 10^3/u L [place] # (Auto) (0.2-0.9) 10^3/u L Eos # (Auto) (0.0-0.8) 10^3/u L Baso # (Auto) (0.0-0.1) 10^3/u L Nucleated RBC % (a uto) % Nucleated RBCs # /100WBC D-Dimer (0-0.59) ug/mIFE U Sodium (136-145) mmol/L Potassium (3.5-5.1) mmol/L Chloride (98-107) mmol/L Carbon Dioxide (22-29) mmol/L Anion Gap (5-19) BUN (6-20) mg/dL Creatinine (0.7-1.2) mg/dL GFR Calculation (90-130) mL/min Glucose (65-115) mg/dL Calculated Osmolal ity (285-295) mOsm/k g Lactate (0.5-2.2) mmol/L Calcium (8.5-10.5) mg/dL Magnesium 2.0 (1.7-2.3) mg/dL Total Bilirubin (0.15-1.2) mg/dL AST (0-40) U/L ALT (0-41) U/L Alkaline Phosphata se (40-130) IU/L Troponin T Baselin e (0-15) ng/L Troponin T 120 Min [place] 12.66 (0-15) ng/L Delta Troponin T 2.66 (0-10) ABS# Troponin T Hi Sens 6Hr 15.08 H (0-15) ng/L Troponin T Hi Sens 6Hr Delta 5.08 (0-12) ng/L NT-Pro-B Natriuret Pep (0-125) pg/mL Total Protein (6.6-8.7) g/dL Albumin (3.5-5.2) g/dL Globulin (1.3-4.6) g/dL TSH (0.27-4.20) uIU/ mL Urine Color (Yellow) Urine Appearance (CLEAR) Urine pH (5-7) Ur Specific Gravit y (1.005-1.030) Urine Protein (Negative) Urine Glucose (UA) (Normal) Urine Ketones (Negative) Urine Blood (Negative) Urine Nitrate (Negative) Urine Bilirubin (Negative) Urine Urobilinogen (Negative) mg/dL Ur Leukocyte Suad ase (Negative) Urine RBC (0-2) /hpf Urine WBC (0-5) /hpf Ur Squamous Epith Cells (0-5) /hpf Amorphous Sediment Urine Bacteria (NONE) /hpf Discharge Plan Discharge Patient Disposition: Admitted As Inpatient Admit Provider: Davis Mart Clinical Impression: Atrial fibrillation, Chest pain Condition: Stable Coding Level of Care Code ED Bottom Stop Attacher for g Fwd Exam Comprehensive
--- NOTE | 2020-12-09 23:40 | ECG_ITS ---
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 [id number]
--- NOTE | 2020-12-09 23:42 | PM.HP ---
Providers/Chief Complaint Primary Care Provider: Anni Terrazas MD Chief Complaint: CHEST PAIN History of Present Illness Cosmo Blanc is a 60 year old male who only has a history of hypertension presented today with chief complaint of dizziness and low blood pressure. Patient is stating that he had an syncopal event about a week ago when his blood pressure was low. Today he was shopping at [employer], started experiencing lightheaded, blood pressure monitor was not able to take his blood pressure read at the [facility], he started experiencing left-sided chest discomfort which radiated towards his left shoulder jaw, gave him headache as well and resolved on its own within seconds. He did not experience any nausea, vomiting, shortness of breath, seizure or syncopal event. He came to the hospital for further evaluation. Diagnostics in the ER revealed atrial flutter with RVR, for which she was given Cardizem 10 mg IV x2 and then was transitioned to Cardizem infusion his heart rate dropped down to 60s and his Cardizem drip was stopped at the time of my evaluation his systolic blood pressure was ranging between 80-100mmhg, he did not complain of active chest pain, shortness of breath, confusion. He is denying previous history of thyroid disorder recent diarrhea, diabetes, TIA, stroke or any bleeding. His [id number] score is 1 Repeat EKG showing sinus rhythm heart rate fluctuating between 57-62, chest x-ray unremarkable, CBC BMP unremarkable I have requested magnesium level, D-dimer unremarkable, TSH normal Review of Systems Const: Reports: chills, body aches and fatigue; Denies: fever(s) Eyes: Denies: change in vision ENMT: Denies: throat pain Card: Denies: chest pain Resp: Denies: dyspnea GI: Denies: abdominal pain : Denies: flank pain Musc: Denies: neck pain Skin/Breast: Denies: rash Neuro: Denies: headache(s) Psych: Denies: anxiety Endo: Denies: polyuria Lobo/Lymph: Denies: easy bruising All/Imm: Denies: urticaria Medications/Allergies Home Medications Medication Instructions Recorded Confirmed Last Taken Type aspirin 81 mg PO DAILY@12/09/20 12/09/20 12/09/20 05:00 History metoprolol tartrate 25 mg PO BID@05,12/09/20 12/09/20 12/09/20 05:00 History Allergies Allergy/AdvReac Type Severity Reaction Status Date / Time Penicillins Allergy ALGY-Anaphy Verified 12/09/20 17:46 laxis PFSH Acute PFSH: Medical History Atrial fibrillation Surgical History History of cholecystectomy Family History Other CAD (coronary artery disease) Cancer Social History (Updated 12/10/20 @ 00:23 by Davis Mart MD) Smoking and tobacco status: current every day smoker smokeless tobacco Alcohol intake: former Substance/Drug Use: never Household members: spouse Housing: House Current occupational status: other Details: 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 Vitals/I&O/Wt Last Vital Signs Temp 97.3 F L 12/09/20 17:28 Pulse 63 12/09/20 23:31 Resp 16 12/09/20 23:29 BP 98/67 12/09/20 23:31 Pulse Ox 99 12/09/20 23:31 12/09/20 12/09/20 12/10/20 14:59 22:59 06:59 Intake Total 11.1 / 11.1 Balance 11.1 / 11.1 Weight last 48 hrs Weight 121.563 kg Physical Exam Narrative: EXAM NARRATIVE: Very pleasant male sitting comfortably in her bed No active chest pain shortness of breath Awake alert oriented x3 GCS 15 Clinically looks euvolemic Poor dental hygiene S1, S2 variable, telemetry showing heart rate fluctuating between 57-62 seems to be sinus rhythm repeat EKG showed sinus pattern No acute respiratory distress No abdominal pain No neurological deficit noted No joint swelling or skin changes Appropriate mood and affect EOMI, PERRLA Data : 12/09/20 17:52 12/09/20 17:52 A&P Assessment and plan (1) Atrial flutter: New onset atrial flutter with RVR improved with Cardizem infusion Cardizem drip has been turned off current heart rate 60, systolic blood pressure ranging between 90 to 100 mmHg, no active chest pain or any symptoms, TSH normal, potassium normal will check magnesium level, follow-up with echo in the morning Considering significant fluctuation in his heart rate I would recommend Holter monitoring and avoid driving for now follow-up with precision lens polisher [id number] score 1 not a candidate for anticoagulation continue aspirin Hold metoprolol because of current bradycardia Status: Acute (2) Pre-syncope: Patient is describing dizziness as lightheadedness no recent syncope however endorsing syncopal event last week TSH normal No active chest pain shortness of breath nausea vomiting or confusion Systolic blood pressure is soft We will give him 500 mL normal saline bolus Status: Acute Additional A&P Information Cardiac diet Full code DVT prophylaxis Lovenox Attestations Medical Necessity Statement*: Anticipating discharge in less than 48 hours, will need overnight monitoring because of tachybradycardia syndrome Time Spent in Patient Care: (>than 50% of time spent in counselling and/or direct pt care on unit). 35mins Coding Level of Care Code Acute Manager Psychology for Pauline Astorga Diagnoses Atrial flutter I48.92 Pre-syncope R55
[2020-12-10] VITALS (12 sets, daily range): BP systolic 98–121; BP diastolic 57–75; PULSE 60–87; RESP 15–20; TEMP 36.4–37.1; O2SAT 96–100
[2020-12-10 00:12] LABS: Troponin 5 6HR 15.08 ng/L (0-15); Troponin 5 6HR Delta 5.08 ng/L (0-12)
[2020-12-10] MEDS: lactated ringers 500 ML 999 ML IV (02:59)
[2020-12-10] MEDS: aspirin 81 mg Chew Tablet PO (05:30)
[2020-12-10] MEDS: enoxaparin 40 mg/0.4 mL Syringe SUBCUT (08:57)
--- NOTE | 2020-12-10 10:15 | PC.CHAP ---
Pastoral Care Encounter/Spiritual Assessment Type of Contact [] Declined corporate quality assurance manager visit [] Patient/Family/Request visit [] Outpatient visit [] Follow-up visit [] Physician referral [] Code/Alert [X] Routine visit [] Staff referral [] Actively dying [] Patient sleeping [] Family support [] [] Out of room [] Palliative care [] [] Receiving care in room [] Pre-surgical visit [] Trauma [] Long length of stay [] ICU visit [] Other: Relational/Emotional Strength [X] Patient feels connected with others/family/visitors/staff [] Distress [] Loneliness/isolation [] Abandonment Spirituality of Patient [X] Person of Jessica [] Attends Baptism of their Jessica [] Believes in Prayer [] Reads Bible or Yazidism materials [] There are Spiritual issues to be addressed Public Aid Eligibility Assistant Interventions [X] Prayer [] Active listening [] Non-anxious presence [] Spiritual/emotional support [] Crisis/trauma care [] Spiritual counseling [] Bereavement support [] Provided bereavement packet [] Provided Bible/devotional materials [] Provided toy/stuffed animal, coloring book to patient or family member [] Provided Communion [] Anointing/[place] [] Salvation [X] Completed spiritual assessment [] Other: Impact on Illness or Injury [] Angry [] Fearful [] Anxious [] Often cries [] Exhaustion [] Unable to work [] Unable to attend caodaism [] Unable to walk/stand [] Unable to read [] Unable to drive [] Unable to eat/drink [] Unable to sleep [] Unable to be with family [] Patient intubated [] Other: Summary PATIENT HAD GOOD PRAISE FOR DOC N NURSES Time spent with patient 10MMIN
--- NOTE | 2020-12-10 12:45 | PM.PN ---
Subjective Subjective: Interval history: Cosmo reports he is doing well. No particular concerns. Converted to sinus rhythm after admission. Medications: Reviewed: Yes Vitals/I&O/Wt Last Vital Signs Temp 98.4 F 12/10/20 11:09 Pulse 66 12/10/20 11:09 Resp 18 12/10/20 11:09 BP 100/65 12/10/20 11:09 Pulse Ox 97 12/10/20 11:09 12/09/20 12/10/20 12/10/20 22:59 06:59 14:59 Intake Total 11.1 / 11.1 740 / 751.1 600 / 600 Output Total 0 / 0 700 / 700 Balance 11. / 11.1 740 / 751.1 -100 / -100 Weight last 48 hrs Weight 121.563 kg Physical Exam Narrative: EXAM NARRATIVE: General exam no apparent distress Cardiovascular regular rate and rhythm Lungs clear Abdomen is soft nontender with positive bowel sounds Extremities no cyanosis clubbing or edema Data : 12/09/20 17:52 12/09/20 17:52 A&P Assessment and plan (1) Atrial flutter: Paroxysmal atrial fibrillation/flutter Despite compliance with metoprolol 50 mg twice daily had significant rapid ventricular rate on arrival to the emergency department that was symptomatic. Previous admission several weeks ago had a syncopal episode. Cardiology consultation today. They recommend initiation of antiarrhythmic and close monitoring inpatient on telemetry TSH is normal [id number] score 1 not a candidate for anticoagulation continue aspirin Previous echocardiogram demonstrated preserved EF, moderate aortic valve calcification but no significant stenosis or regurgitation. Status: Acute (2) Pre-syncope: Secondary to atrial fibrillation/flutter with rapid ventricular rate Status: Acute Additional A&P Information Full code DVT prophylaxis Lovenox Attestations Medical Necessity Statement*: Needs continued hospitalization for initiation of antiarrhythmic per cardiology. If he is kept past tomorrow may need to consider conversion to full admission. Coding Level of Care Code Acute Auricular Acupuncturist for Pauline Astorga Diagnoses Atrial flutter I48.92 Pre-syncope R55
--- NOTE | 2020-12-10 18:20 | PM.CONSULT ---
Providers/Reason For Consult Consulting Physican/Specialty*: Cardiology Reason for Consult*: Recurrent atrial flutter Attending Physician: Steven Palomo MD Primary Care Provider: Anni Terrazas MD History of Present Illness History of Present Illness Cosmo Blanc is a 60 year old male history significant for recurrent uncontrolled atrial flutter was admitted to the hospital with A. flutter with RVR. Patient was given IV calcium channel gricel which converted him to sinus rhythm. In the past metoprolol was reduced due to bradycardia. After converting into sinus rhythm patient exhibited bradycardia on the monitor. He remained stable though heart rate drops down to 50s. He denies chest pain out of usual shortness of breath PND orthopnea.CHADVASC <1, patient also declined anticoagulation. I will increase aspirin to 325 mg p.o. daily. Since patient continues to have episodes of recurrent atrial flutter with symptoms of weakness and shortness of breath and because of the fact sunshine gricel leads to bradycardia, we will try 1C sodium channel gricel propafenone. I have detailed discussion with the patient regarding risk benefit and alternative for propafenone. He understand risk of arrhythmia heart block constipation dizziness. He would like to proceed with it Review of Systems General: Reports: 10 or more systems reviewed and unremarkable except in HPI and below Const: Reports: chills, body aches and fatigue; Denies: fever(s) Eyes: Denies: change in vision, blurry vision or eye redness ENMT: Denies: throat pain, swelling of lips/tongue, ear or mastoid pain or nasal congestion Card: Denies: chest pain, palpitations, irregular heart rhythm, edema, dyspnea on exertion or orthopnea Resp: Denies: dyspnea, productive cough or non-productive cough GI: Denies: abdominal pain, diarrhea or GI cramping : Denies: flank pain, urinary frequency or urinary urgency Musc: Denies: neck pain, back pain, extremity pain, joint pain, joint redness, limited range of motion or muscle weakness Skin/Breast: Denies: rash, pruritus, erythema, skin pain or skin tenderness Neuro: Denies: headache(s), numbness in extremities, weakness in extremities, sensory changes, difficulty walking, dizziness, confusion or Slurred speech present Psych: Denies: anxiety or depression Endo: Denies: polyuria Lobo/Lymph: Denies: easy bruising All/Imm: Denies: urticaria, throat swelling or tongue swelling Meds/Allergies Home Medications and Allergies Home Medications Medication Instructions Recorded Confirmed Last Taken Type aspirin 81 mg PO DAILY@05 12/09/20 12/09/20 12/09/20 05:00 History metoprolol tartrate 25 mg PO BID@12/09/20 12/09/20 12/09/20 05:00 History Allergies Allergy/AdvReac Type Severity Reaction Status Date / Time Penicillins Allergy ALGY-Anaphy Verified 12/09/20 17:46 laxis Current Medications Current Medications Generic Name Dose Route Start Last Admin Trade Name Abhishekq PRN Reason Stop Dose Admin Aspirin 81 mg 12/10/20 05:00 12/10/20 05:30 Aspirin 81 Mg Chew Tablet PO 81 mg DAILY@05 VERONIQUE Administration Enoxaparin Sodium 40 mg 12/10/20 09:00 12/10/20 08:57 Enoxaparin 40 Mg/0.4 Ml Syringe SUBCUT 40 mg DAILY VERONIQUE Administration PFSH Acute PFSH: Medical History Atrial fibrillation Surgical History History of cholecystectomy Family History Other CAD (coronary artery disease) Cancer Social History (Updated 12/10/20 @ 00:23 by Davis Mart MD) Smoking and tobacco status: current every day smoker smokeless tobacco Alcohol intake: former Substance/Drug Use: never Household members: spouse Housing: House Current occupational status: other Details: 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 Vitals/I&O/Wt Last Vital Signs Temp 98.7 F 12/10/20 15:44 Pulse 67 12/10/20 15:44 Resp 16 12/10/20 15:44 BP 98/63 12/10/20 15:44 Pulse Ox 96 12/10/20 15:44 12/10/20 12/10/20 12/10/20 06:59 14:59 22:59 Intake Total 740 / 751.1 1080 / 1080 Output Total 0 / 0 1850 / 1850 Balance 740 / 751.1 -770 / -770 Weight last 48 hrs Weight 268 lb Physical Exam Narrative: EXAM NARRATIVE: GENERAL: Patient is alert, awake and oriented x3. NECK: No jugular vein distension. HEENT: No cyanosis. No icterus. No pallor. HEART: Regular S1 and S2. No murmur, rub or gallop. LUNGS: Clear to auscultate bilaterally. ABDOMEN: Soft, nontender and nondistended. Positive bowel sounds. No guarding, rebound or tenderness. CENTRAL NERVOUS SYSTEM: Grossly nonfocal. EXTREMITIES: Lower extremities without edema bilaterally. A&P Assessment and plan (1) Atrial flutter: As above we will start patient on propafenone. We will repeat EKG 2 to 3 hours after using propafenone dose for next 24 to 48 hours. Further plan will be devised as per progress with patient. Aspirin will be increased to 325 mg. Status: Acute Qualifiers: Atrial flutter type: typical Qualified Code(s): I48.3 - Typical atrial flutter Additional A&P Information As above we will start patient on propafenone. We will repeat EKG 2 to 3 hours after using propafenone dose for next 24 to 48 hours. Further plan will be devised as per progress with patient. Aspirin will be increased to 325 mg. Consult Attestations Medical Necessity Statement: Patient require continuation hospitalization for loading of antiarrhythmic in order to avoid life-threatening arrhythmia Coding Level of Care Code New Pt Acute Toll Transmission Worker for Chg Fwd Patient Type New Medical Decision Making Moderate Complexity Diagnoses Atrial flutter I48.3 Atrial flutter type: typical
--- NOTE | 2020-12-10 18:23 | ECG_ITS ---
[facility] Test Date: 2020-12-10 Pat Name: Cosmo Blanc Department: Room: 260 Gender: Male Account Support Manager: : 1960 Requested By: Davis Anderson Order Number: [id number] Reading MD: DAVIS ANDERSON Measurements Intervals [place] Rate: 62 P: 40 UT: 191 QRS: 55 QRSD: 89 T: 41 QT: 383 QTc: 391 Interpretive Statements SINUS RHYTHM Compared to ECG 12/10/2020 00:05:49 No significant changes Electronically Signed On 12-11-2020 20:09:09 BRANCH SALES MANAGER by DAVIS ANDERSON [id number]
[2020-12-10] MEDS: aspirin 81 mg Chew Tablet 324 MG PO (18:37)
[2020-12-10] MEDS: propafenone 150 mg Tablet PO (22:22)
[2020-12-11] VITALS (10 sets, daily range): BP systolic 102–121; BP diastolic 62–73; PULSE 56–71; RESP 17–18; TEMP 36.5–37.3; O2SAT 94–99
[2020-12-11] MEDS: aspirin 81 mg Chew Tablet 324 MG PO (04:40)
--- NOTE | 2020-12-11 08:22 | PM.PN ---
Documented by User: CLAYTON Ozuna STDCHATO 12/11/20 08:38 Subjective Subjective: Interval history: Cosmo reports he is doing okay. Started on Propafenone yesterday. Cosmo was in sinus rhythm, regular rate during examination. Patient reports occasional palpitations. No chest pain, SOB, dizziness, diarrhea, or constipation. Reports headache that started 1 hour ago. Reports tingling sensation in left arm in ulnar nerve distribution starting from shoulder; he reports he's had this since before hospital admission. Medications: Reviewed: Yes Vitals/I&O/Wt Last Vital Signs Temp 97.9 F 12/11/20 07:58 Pulse 56 L 12/11/20 07:58 Resp 18 12/11/20 07:58 BP 121/72 12/11/20 07:58 Pulse Ox 94 12/11/20 07:58 12/10/20 12/11/20 12/11/20 22:59 06:59 14:59 Intake Total 360 / 1440 Output Total 475 / 2325 700 / 3025 500 / 500 Balance -115 / -885 -700 / -1585 -500 / -500 Weight last 48 hrs Weight 121.563 kg Physical Exam Narrative: EXAM NARRATIVE: General: white male in no apparent distress Cardiovascular: regular rate and rhythm, no murmur Lungs: clear bilaterally, no wheezing Abdomen: soft, nontender, positive bowel sounds Upper extremity: left arm with tingling in ulnar nerve distribution, 5/5 strength and sensation intact bilaterally Lower extremities: no cyanosis or edema bilaterally Data : 12/09/20 17:52 12/09/20 17:52 Coding Level of Care Code Acute [place] Converter Blower for [facility] Fwd Diagnoses Atrial flutter I48.3 Atrial flutter type: typical Pre-syncope R55 Documented by User: Steven Palomo MD 12/11/20 13:35 Subjective Subjective: Interval history: Above reviewed. No additions. Discussed with him to keep pressure off elbow to help ulnar neuropathy. Medications: Reviewed: Yes Physical Exam Narrative: EXAM NARRATIVE: Agree with above. No changes. I examined test as well. Data : 12/09/20 17:52 12/09/20 17:52 A&P Assessment and plan (1) Atrial flutter: Currently in sinus rhythm Secondary to recurrence of atrial flutter despite being on beta-gricel and with significant high rate he was placed on propafenone by cardiology. EKG today shows no concerns Repeat EKG tomorrow, and consider discharge if no concerns with intervals [id number] score 1, not candidate for anticoagulation. Currently on aspirin. Recent previous echo demonstrated preserved EF, moderate aortic calcification with no significant stenosis or regurgitation Status: Acute Qualifiers: Atrial flutter type: typical Qualified Code(s): I48.3 - Typical atrial flutter (2) Pre-syncope: Status: Acute Additional A&P Information Full code DVT prophylaxis Lovenox Attestations Medical Necessity Statement*: Needs continued close monitoring status post initiation of propafenone for paroxysmal atrial flutter with rapid ventricular rate. Coding Level of Care Code Acute Bessemer Converter Blower for Pauline Astorga Diagnoses Atrial flutter I48.3 Atrial flutter type: typical Pre-syncope R55
[2020-12-11] MEDS: propafenone 150 mg Tablet PO ×3 (08:38→20:52)
[2020-12-11] MEDS: enoxaparin 40 mg/0.4 mL Syringe SUBCUT (08:39)
--- NOTE | 2020-12-11 10:02 | ECG_ITS ---
[facility] Test Date: 2020-12-11 Pat Name: Cosmo Blanc Department: Room: 260 Gender: Male Broadcast Program Director: : 1960 Requested By: Steven Carroll Order Number: [id number] Reading MD: JEOVANY GEORGES Measurements Intervals [place] Rate: 66 P: 46 AK: 189 QRS: 60 QRSD: 90 T: 38 QT: 382 QTc: 401 Interpretive Statements SINUS RHYTHM Compared to ECG 12/11/2020 11:00:35 Left posterior fascicular block no longer present Myocardial infarct finding no longer present Electronically Signed On 12-11-2020 20:08:53 AMBULATORY TECHNOLOGIST by JEOVANY GEORGES [id number]
--- NOTE | 2020-12-11 12:13 | PM.PN ---
Subjective Subjective: Interval history: No changes in the QRS or QT after starting antiarrhythmics. No episode of atrial flutter. Medications: Reviewed: Yes Vitals/I&O/Wt Last Vital Signs Temp 98.0 F 12/11/20 11:47 Pulse 60 12/11/20 11:47 Resp 18 12/11/20 11:47 BP 102/64 12/11/20 11:47 Pulse Ox 97 12/11/20 11:47 12/10/20 12/11/20 12/11/20 22:59 06:59 14:59 Intake Total 360 / 1440 720 / 720 Output Total 475 / 2325 700 / 3025 900 / 900 Balance -115 / -885 -700 / -1585 -180 / -180 Weight last 48 hrs Weight 268 lb Physical Exam Narrative: EXAM NARRATIVE: GENERAL: Patient is alert, awake and oriented x3. NECK: No jugular vein distension. HEENT: No cyanosis. No icterus. No pallor. HEART: Regular S1 and S2. No murmur, rub or gallop. LUNGS: Clear to auscultate bilaterally. ABDOMEN: Soft, nontender and nondistended. Positive bowel sounds. No guarding, rebound or tenderness. CENTRAL NERVOUS SYSTEM: Grossly nonfocal. EXTREMITIES: Lower extremities without edema bilaterally. Data : 12/09/20 17:52 12/09/20 17:52 A&P Assessment and plan (1) Atrial flutter: As above we will start patient on propafenone. We will repeat EKG 2 to 3 hours after using propafenone dose for next 24 to 48 hours. Further plan will be devised as per progress with patient. Aspirin will be increased to 325 mg. On today's visit with the patient, he denies any complaint no overnight event noted on the telemetry no significant bradycardia noted on the telemetry no episode of atrial flutter noted. We will continue propafenone with serial EKGs at the dose of 150 mg 3 times daily. If stays stable will discharge him tomorrow. Status: Acute Qualifiers: Atrial flutter type: typical Qualified Code(s): I48.3 - Typical atrial flutter Additional A&P Information Plan as above. Advised to walk around with telemetry Attestations Medical Necessity Statement*: Patient require continuation hospitalization for above defined care with Coding Level of Care Code Established Pt Acute Audio Visual Equipment Rental Clerk for Pauline Fwd Patient Type Established History Detailed Exam Detailed Medical Decision Making Moderate Complexity Diagnoses Atrial flutter I48.3 Atrial flutter type: typical
--- NOTE | 2020-12-12 | ECG_ITS ---
[facility] Test Date: 2020-12-12 Pat Name: Cosmo Blanc Department: Room: 260 Gender: Male Web Services Developer: MATA MORRIS: 1960 Requested By: Davis Anderson Order Number: [id number] Reading MD: Sherrell Davila M.D. Measurements Intervals [place] Rate: 66 P: 44 GA: 198 QRS: 60 QRSD: 90 T: 48 QT: 382 QTc: 403 Interpretive Statements SINUS RHYTHM Compared to ECG 12/11/2020 11:03:41 No significant changes Electronically Signed On 12-12-2020 20:10:19 PHYSICIAN PRACTICE COORDINATOR by Sherrell Davila M.D. [email or web address] [place] [email or web address] general hospitalGoCoopselect medical [facility] shawArtisan Pharma/store/[id number]
[2020-12-12 04:51] VITALS: BP 114/72; PULSE 69; RESP 18; TEMP 37.4; O2SAT 94
[2020-12-12] MEDS: aspirin 81 mg Chew Tablet 324 MG PO (05:33)
[2020-12-12 05:57] VITALS: PULSE 60
--- NOTE | 2020-12-12 07:00 | ECG_ITS ---
[facility] Test Date: 2020-12-12 Pat Name: Cosmo Blanc Department: Room: 260 Gender: Male Deblocker: : 1960 Requested By: Steven Carroll Order Number: [id number] Jimmy MD: Sherrell Davila M.D. Measurements Intervals [place] Rate: 65 P: 46 DC: 199 QRS: 58 QRSD: 95 T: 41 QT: 385 QTc: 402 Interpretive Statements SINUS RHYTHM WITH OCCASIONAL SUPRAVENTRICULAR PREMATURE COMPLEXES Compared to ECG 12/12/2020 00:09:36 No significant changes Electronically Signed On 12-12-2020 20:11:05 BOOKBINDER APPRENTICE by Sherrell Davila M.D. [email or web address] regional hospitalpicoChipuniversity hospitals parma medical centerDocRun/store/[id number]
[2020-12-12 07:15] VITALS: BP 120/75; PULSE 55; RESP 16; TEMP 36.3; O2SAT 94
[2020-12-12] MEDS: enoxaparin 40 mg/0.4 mL Syringe SUBCUT (07:59)
[2020-12-12] MEDS: propafenone 150 mg Tablet PO (07:59)
--- NOTE | 2020-12-12 10:16 | P.DS_ITS ---
Discharge Providers Date of Admission: 12/10/20 01:25 Date of Discharge: December 12, 2020 Attending Provider at Admission: Davis Mart MD Attending Provider at Discharge: Steven Palomo MD Primary Care Provider: Anni Trerazas MD Diagnoses at Discharge Discharge Diagnosis (1) Atrial flutter: Status: Acute Qualifiers: Atrial flutter type: typical Qualified Code(s): I48.3 - Typical atrial flutter (2) Pre-syncope: Status: Acute Reason for Visit Reason for Visit: CHEST PAIN Hospital Course Hospital Course Cosmo is a 60-year-old male with history of atrial flutter with rapid ventricular rate that presented to the hospital as a readmission for recurrence of atrial fibrillation with rapid ventricular rate despite being on beta- gricel. During his evaluation and treatment he converted into sinus rhythm with diltiazem. Secondary to his recurrent atrial flutter with rapid ventricular rate on beta-gricel cardiology was consulted. They believe the better option for him would be propafenone which was initiated. His QRS duration and QTc interval were followed closely while inpatient with cardiology and with no significant discernible side effects it was thought he could be discharged on December 12. At that time he was in sinus rhythm, with a heart rate of 55. He will follow up with cardiology in 1 week, his primary care provider 3 to 5 days. Electrolytes including magnesium were checked during his hospital stay and normal. TSH was checked last hospital stay and normal. Discharge Data Data Completed and Pending: Completed Studies During Hospitalization Category Date Time Status XR chest 1V von ble [id number] Urgent Exams 12/09/20 17:39 Completed Vitals: Last Vital Signs Temp 97.4 F L 12/12/20 07:15 Pulse 55 L 12/12/20 07:15 Resp 16 12/12/20 07:15 BP 120/75 12/12/20 07:15 Pulse Ox 94 12/12/20 07:15 Discharge Plan Discharge Patient Disposition: Home Condition: Stable Prescriptions: New propafenone 150 mg Tablet 150 mg PO TID Qty: 90 RF: 0 aspirin 81 mg Tablet,Chewable 324 mg PO DAILY@05 Qty: 30 RF: 0 Discontinued aspirin 81 mg tablet,chewable 81 mg PO DAILY@ RF: 0 metoprolol tartrate 25 mg tablet 25 mg PO BID@ RF: 0 Discharge Orders: Discharge Order (Routine); Ordered 12/12/20 Ordered By: Steven Palomo Referrals: Anni Terrazas MD [Primary Care Provider] - 4-7 days Davis Anderson MD [Physician] - 1 week Discharge Diet: Cardiac Discharge Activity: Increase activity as tolerated Activity Restrictions/Additional Instructions: Take all medicine as prescribed. Keep follow-up. Discharge Attestations Time Spent in Discharge Care*: greater than 30 min Quality Metrics Clinical Quality Measures During this hospital stay, did patient experience: None Coding Level of Care Code Acute Bmw Service Technician for g Fwd Diagnoses Atrial flutter I48.3 Atrial flutter type: typical Pre-syncope R55
[2020-12-12 11:21] VITALS: BP 114/71; PULSE 61; RESP 17; TEMP 36.4; O2SAT 98
--- NOTE | 2020-12-12 12:20 | PM.PN ---
Subjective Subjective: Interval history: Patient stable in the sinus rhythm no bradycardia. Patient was started on propafenone. He is tolerating it well Medications: Reviewed: Yes Vitals/I&O/Wt Last Vital Signs Temp 97.5 F L 12/12/20 11:21 Pulse 61 12/12/20 11:21 Resp 17 12/12/20 11:21 BP 114/71 12/12/20 11:21 Pulse Ox 98 12/12/20 11:21 12/11/20 12/12/20 12/12/20 22:59 06:59 14:59 Intake Total 640 / 1720 360 / 360 Output Total 2250 / 3150 1000 / 4150 Balance -1610 / -1430 -1000 / -2430 360 / 360 Physical Exam Narrative: EXAM NARRATIVE: GENERAL: Patient is alert, awake and oriented x3. NECK: No jugular vein distension. HEENT: No cyanosis. No icterus. No pallor. HEART: Regular S1 and S2. No murmur, rub or gallop. LUNGS: Clear to auscultate bilaterally. ABDOMEN: Soft, nontender and nondistended. Positive bowel sounds. No guarding, rebound or tenderness. CENTRAL NERVOUS SYSTEM: Grossly nonfocal. EXTREMITIES: Lower extremities without edema bilaterally. Data : 12/09/20 17:52 12/09/20 17:52 A&P Assessment and plan (1) Atrial flutter: As above we will start patient on propafenone. We will repeat EKG 2 to 3 hours after using propafenone dose for next 24 to 48 hours. Further plan will be devised as per progress with patient. Aspirin will be increased to 325 mg. On today's visit with the patient, he denies any complaint no overnight event noted on the telemetry no significant bradycardia noted on the telemetry no episode of atrial flutter noted. We will continue propafenone with serial EKGs at the dose of 150 mg 3 times daily. If stays stable will discharge him tomorrow. On today's visit dated 2020 patient is tolerating propafenone well no more atrial flutter observed. He will be following up in our clinic. He can be discharged today Status: Acute Qualifiers: Atrial flutter type: typical Qualified Code(s): I48.3 - Typical atrial flutter Additional A&P Information Plan as above. Advised to walk around with telemetry Attestations Medical Necessity Statement*: Patient can be discharged home Coding Level of Care Code Established Pt Acute Insurance Risk Manager for Chg Fwd Patient Type Established History Expanded Problem Focused Exam Expanded Problem Focused Medical Decision Making Moderate Complexity Diagnoses Atrial flutter I48.3 Atrial flutter type: typical
[2020-12-12 12:58] VITALS: BP 114/71; PULSE 61; RESP 17; TEMP 36.4; O2SAT 98
--- NOTE | 2020-12-12 15:39 | PC.RESP ---
SMOKING CESSATION INFORMATION SENT TO PATIENT.
== END 2020-12-12 12:52 | disposition home or self-care (01) ==
LOC: ER 23:48 → MEDSURG 12-10 01:29
PROVIDERS: Family Medicine; Admitting Provider Internal Medicine; Emergency Provider Emergency Medicine; PCP Family Medicine; Visit Provider Internal Medicine
DX: I48.3 Typical atrial flutter (principal); R55 Syncope and collapse; F17.290 Nicotine dependence, other tobacco product, uncomplicated
CPT/HCPCS: 12345; 36415; 71045; 80053; 81001; 83605; 83735; 83880; 84443; 84484; 85025; 85378; 93005; 96365; 96366; 96372; 96375; 96376; 99285; G0378; J1650; J3490

== ENCOUNTER 2021-11-09 01:46 | Emergency (ER) | payer OTHER, SELFPAY ==
[2021-11-09 01:53] VITALS: PULSE 161; RESP 18; TEMP 36.2; O2SAT 97; BMI 26.2
--- NOTE | 2021-11-09 02:03 | XRR_ITS ---
PROCEDURE INFORMATION: Exam: XR Chest Exam date and time: 11/09/2021 2:03 AM Age: 61 years old Clinical indication: Other: Syncope TECHNIQUE: Imaging protocol: XR of the chest. Views: 1 view. COMPARISON: CR XR chest 1V portable [id number] 12/09/2020 5:41 PM FINDINGS: Lungs: No CHF/pulmonary edema. Visible lungs appear essentially clear. Pleural spaces: No visible pneumothorax. No definite pleural fluid. Heart/Mediastinum: Heart size is upper range of normal. Bones/joints: No significant acute finding. XR/XR chest 1V portable [id number] IMPRESSION: 1. No definite CHF or pneumonia. 2. Other findings discussed above.
--- NOTE | 2021-11-09 02:03 | CTR_ITS ---
PROCEDURE INFORMATION: Exam: CT Head Without Contrast Exam date and time: 11/09/2021 2:03 AM Age: 61 years old Clinical indication: Syncope and collapse; Additional info: Syncope hit head TECHNIQUE: Imaging protocol: Computed tomography of the head without contrast. Radiation optimization: All CT scans at this facility use at least one of these dose optimization techniques: automated exposure control; mA and/or kV adjustment per patient size (includes targeted exams where dose is matched to clinical indication); or iterative reconstruction. COMPARISON: No relevant prior studies available. RADIATION DOSE METRICS: Total DLP (mGy-cm): 861.04 FINDINGS: Brain: No acute intracranial hemorrhage or mass effect. There is mild decreased attenuation in the periventricular white matter, likely from microvascular disease. Small well-defined low attenuation area along the inferior margin of the left basal ganglia may represent a prominent perivascular space versus an old lacunar infarct. No definite acute infarct by CT. MRI could be more sensitive/specific for detection, as clinically directed. Cerebral ventricles: Ventricle size is normal for age. Paranasal sinuses: Included paranasal sinuses are essentially clear. Mastoid air cells: No significant acute finding. Vasculature: Vascular calcifications in the internal carotid arteries. Bones/joints: No definite acute skull fracture. Soft tissues: No significant acute finding. CT/CT head wo con* [id number] IMPRESSION: 1. No acute intracranial hemorrhage or mass effect. 2. No definite acute infarct by CT, see above. 3. Other findings discussed above.
--- NOTE | 2021-11-09 02:03 | ECG_ITS ---
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 Measurements Intervals [place] Rate: 128 P: 234 [place]: 154 QRS: 55 QRSD: 83 T: 31 QT: 303 QTc: 443 Interpretive Statements SINUS TACHYCARDIA ABNORMAL RHYTHM ECG Compared to ECG 12/12/2020 05:57:50 Sinus rhythm no longer present Electronically Signed On 11-09-2021 20:03:54 CREW MANAGER by Sherrell Davila M.D. [id number] f
[2021-11-09 02:15] LABS: Basophils # 0.1 10^3/uL (0.0-0.1); Basophils % 1.2 %; Eosinophils # 0.3 10^3/uL (0.0-0.8); Eosinophils % 4.7 %; Hematocrit 40.1 % (42.0-52.0); Hemoglobin 13.6 g/dL (11.7-16.6); Lymphocytes # 2.7 10^3/uL (0.8-4.8); Lymphocytes % 36.7 %; Mean Corpuscular HGB Conc 33.9 g/dL (30.0-36.0); Mean Corpuscular Hemoglobin 31.9 pg (28.0-34.0); Mean Corpuscular Volume 94.1 fl (80-94); Mean Platelet Volume 11.8 fL (7.4-10.4); Monocytes # 0.6 10^3/uL (0.2-0.9); Monocytes % 7.8 %; Neutrophils # 3.56 10^3/uL (1.8-7.7); Nucleated Red Blood Cells % 0 %; Platelet Count 189 10^3/cmm (130-400); Red Blood Count 4.26 10^6/uL (4.1-5.3); Red Cell Distribution Width 13.3 % (12.1-15.1); White Blood Count 7.3 10^3/uL (4.0-10.0)
[2021-11-09] MEDS: sodium chloride 0.9% 1,000 ML 999 ML IV (02:20)
[2021-11-09 02:33] LABS: Troponin(5th) Baseline 32 ng/L (0-15)
[2021-11-09 02:34] LABS: INR 0.98 (0.8-1.2)
[2021-11-09 02:35] LABS: Partial Thromboplastin Time 30.7 SECONDS (23.9-36.7)
[2021-11-09 02:37] LABS: D Dimer 0.43 ug/mIFEU (0-0.59)
[2021-11-09 02:40] LABS: Alanine Aminotransferase 16 U/L (0-41); Albumin Level 4.1 g/dL (3.5-5.2); Alkaline Phosphatase 59 IU/L (40-130); Anion Gap 15.1 (5-19); Aspartate Amino Transferase 19 U/L (0-40); Blood Urea Nitrogen 18 mg/dL (6-20); Calcium 8.5 mg/dL (8.5-10.5); Carbon Dioxide 24 mmol/L (22-29); Chloride 106 mmol/L (98-107); Creatine Phosphokinase 71 U/L (39-308); Globulin 1.8 g/dL (1.3-4.6); Glomerular Filtration Rate 86.4 mL/min (90-130); Glucose 106 mg/dL (65-115); NT Pro B Type Natriuretic Pept 634 pg/mL (0-125); Osmolality Calculated 294 mOsm/kg (285-295); Potassium 4.1 mmol/L (3.5-5.1); Sodium 141 mmol/L (136-145); Total Bilirubin 0.2 mg/dL (0.15-1.2); Total Protein 5.9 g/dL (6.6-8.7)
--- NOTE | 2021-11-09 02:42 | W.ED.ARRPALP ---
HPI - Arrhythmia/Palpitations General: Chief Complaint: Arrhythmia/Palpitations Stated Complaint: AFIB W/RVR/ LOW BP Time Seen by Provider: 11/09/21 01:48 History of Present Illness: HPI narrative: 61-year-old male with a history of atrial fibrillation chronically. He had an ablation 1 week ago. This was done at an outside facility. He had a syncopal episode at home, and fell hitting his head. He had some palpitations as well. No real chest pain. No significant shortness of breath. He complains now of a mild headache essentially. His heart rate has been from 120s to 180s, and irregular in route to the hospital. MD complaint: rapid heart beat and palpitations Onset (ago): hour(s) Duration: intermittent Severity: similar to previous episodes Associated symptoms: Reports syncope; Deny anxiety, cough, diaphoresis, muscle cramps, nausea, paresthesias, short of breath or vomiting Review of Systems Const: Denies: diaphoresis Eyes: Denies: change in vision Card: Reports: palpitations and syncope; Denies: chest pain GI: Denies: nausea or vomiting Musc: Denies: muscle cramps Neuro: Reports: headache(s) (Improved now); Denies: dizziness or confusion Psych: Denies: anxiety PFSH ED PFSH: Medical History Atrial fibrillation Surgical History History of cholecystectomy Family History Other CAD (coronary artery disease) Cancer Social History Smoking and tobacco status: current every day smoker smokeless tobacco Alcohol intake: former Household members: spouse Housing: House Current occupational status: other Details: 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 Physical Exam Const: GENERAL APPEARANCE: cooperative and ill appearing (mildly) HENMT: COMMON NORMALS: normocephalic HEAD & SCALP: normocephalic Eye: COMMON NORMALS: Equal, round and reactive pupils present and EOMs intact bilaterally PUPIL: Yes Equal, round and reactive pupils present Chest: COMMONS NORMALS: normal inspection of the chest Resp: COMMON NORMALS: normal respiratory effort, No use of accessory muscles and clear to auscultation bilaterally AUSCULTATION: clear to auscultation bilaterally Cardio: RATE: tachycardic RHYTHM: abnormal rhythm regularly irregular GI: COMMON NORMALS: Normal to inspection, nondistended, normoactive bowel sounds present, Soft to palpation and non-tender PALPATION: Yes Soft to palpation Course Vital Signs: Vital signs: Vital Signs Temperature 97.2 F L 11/09/21 01:53 Pulse Rate 161 H 11/09/21 01:53 Respiratory Rate 18 11/09/21 01:53 Pulse Oximetry 97 11/09/21 01:53 MDM - Arrhythmia/Palpitations MDM Narrative: Medical decision making narrative: This patient presents in rapid atrial fibrillation with heart rates up to 180. He is given a total of 20 mg of diltiazem and 2 different 10 mg boluses, with conversion to a sinus rhythm with a heart rate of 75. His blood pressure is 90-100 systolic. Saturations are 98% on room air. His CBC is normal. His BMP is normal. His troponin is mildly elevated, which is a finding consistent with rate demand. He did not have chest pain. Head CT negative. Chest x-ray does not reveal significant infiltrate or failure. No effusions. Blood pressure currently 102/73, heart rate 70, sinus, saturations 100% on room air. He would like to go home. Lab Data: Labs: Lab Results 11/09/21 11/09/21 11/09/21 01:52 01:52 01:52 WBC 7.3 10^3/uL 10^3/ uL (4.0-10.0) RBC 4.26 10^6/uL 10^6 /uL (4.1-5.3) Hgb 13.6 g/dL g/dL (11.7-16.6) Hct 40.1 % L % (42.0-52.0) MCV 94.1 fl H fl (80-94) MCH 31.9 pg pg (28.0-34.0) MCHC 33.9 g/dL g/dL (30.0-36.0) RDW 13.3 % % (12.1-15.1) Plt Count 189 10^3/cmm 10^3 /cmm (130-400) MPV 11.8 fL H fL (7.4-10.4) Neut % (Auto) 49.0 % % Lymph % (Auto) 36.7 % % [place] % (Auto) 7.8 % % Eos % (Auto) 4.7 % % Baso % (Auto) 1.2 % % Neut # (Auto) 3.56 10^3/uL 10^3 /uL (1.8-7.7) Lymph # (Auto) 2.7 10^3/uL 10^3/ uL (0.8-4.8) [place] # (Auto) 0.6 10^3/uL 10^3/ uL (0.2-0.9) Eos # (Auto) 0.3 10^3/uL 10^3/ uL (0.0-0.8) Baso # (Auto) 0.1 10^3/uL 10^3/ uL (0.0-0.1) Nucleated RBC % (a uto) 0 % % Nucleated RBCs # 0.0 /100WBC /100W BC PT 13.30 SECONDS SEC ONDS (12.1-14.9) INR 0.98 (0.8-1.2) APTT 30.7 SECONDS SECO NDS (23.9-36.7) D-Dimer 0.43 ug/mIFEU ug/ mIFEU (0-0.59) Sodium 141 mmol/L mmol/L (136-145) Potassium 4.1 mmol/L mmol/L (3.5-5.1) Chloride 106 mmol/L mmol/L (98-107) Carbon Dioxide 24 mmol/L mmol/L (22-29) Anion Gap 15.1 (5-19) BUN 18 mg/dL mg/dL (6-20) Creatinine 0.9 mg/dL mg/dL (0.7-1.2) GFR Calculation 86.4 mL/min L mL/ min (90-130) Glucose 106 mg/dL mg/dL (65-115) Calculated Osmolal ity 294 mOsm/kg mOsm/ kg (285-295) Calcium 8.5 mg/dL mg/dL (8.5-10.5) Total Bilirubin 0.2 mg/dL mg/dL (0.15-1.2) AST 19 U/L U/L (0-40) ALT 16 U/L U/L (0-41) Alkaline Phosphata se 59 IU/L IU/L (40-130) Creatine Kinase 71 U/L U/L (39-308) Troponin T Baselin e NT-Pro-B Natriuret Pep 634 pg/mL H pg/mL (0-125) Total Protein 5.9 g/dL L g/dL (6.6-8.7) Albumin 4.1 g/dL g/dL (3.5-5.2) Globulin 1.8 g/dL g/dL (1.3-4.6) Urine Color Urine Appearance Urine pH Ur Specific Gravit y Urine Protein Urine Glucose (UA) Urine Ketones Urine Blood Urine Nitrate Urine Bilirubin Urine Urobilinogen Ur Leukocyte Suad ase Urine RBC Urine WBC Ur Squamous Epith Cells Amorphous Sediment Urine Bacteria Urine Mucus 11/09/21 11/09/21 01:52 03:04 WBC RBC Hgb Hct MCV MCH MCHC RDW Plt Count MPV Neut % (Auto) Lymph % (Auto) [place] % (Auto) Eos % (Auto) Baso % (Auto) Neut # (Auto) Lymph # (Auto) [place] # (Auto) Eos # (Auto) Baso # (Auto) Nucleated RBC % (a uto) Nucleated RBCs # PT INR APTT D-Dimer Sodium Potassium Chloride Carbon Dioxide Anion Gap BUN Creatinine GFR Calculation Glucose Calculated Osmolal ity Calcium Total Bilirubin AST ALT Alkaline Phosphata se Creatine Kinase Troponin T Baselin e 32 ng/L H ng/L (0-15) NT-Pro-B Natriuret Pep Total Protein Albumin Globulin Urine Color Yellow (Yellow) Urine Appearance Sl hazy (CLEAR) Urine pH 7 (5-7) Ur Specific Gravit y 1.020 (1.005-1.030) Urine Protein Neg (Negative) Urine Glucose (UA) Norm (Normal) Urine Ketones Negative (Negative) Urine Blood Neg (Negative) Urine Nitrate Negative (Negative) Urine Bilirubin Neg (Negative) Urine Urobilinogen Norm mg/dL mg/dL (Negative) Ur Leukocyte Suad ase Trace H (Negative) Urine RBC 0-4 /hpf H /hpf (0-2) Urine WBC 15-25 /hpf H /hpf (0-5) Ur Squamous Epith Cells 0-4 /hpf H /hpf (0-5) Amorphous Sediment Not Reportable Urine Bacteria 4+ /hpf H /hpf (NONE) Urine Mucus 2+ /hpf /hpf Discharge Plan Discharge Patient Disposition: Home Clinical Impression: Atrial fibrillation with rapid ventricular response Syncope Qualifiers: Syncope type: unspecified Qualified Code(s): R55 - Syncope and collapse Condition: Stable Prescriptions: No Action Eliquis 5 mg tablet 5 mg PO BID RF: 0 metoprolol tartrate 25 mg tablet 25 mg PO DAILY PRN (Reason: atrial fibrillation) RF: 0 diltiazem HCl [Cardizem] 60 mg tablet 60 mg PO BID Qty: 60 RF: 6 Discharge Orders: Discharge ED (Routine); Ordered 11/09/21 Ordered By: Uriah Ivory Referrals: Anni Terrazas MD [Primary Care Provider] - Patient Instructions: A-fib (Atrial Fibrillation) (ED) Activity Restrictions/Additional Instructions: Check your heart rate and blood pressure periodically, at least twice a day. Return for chest pain, shortness of breath, repeated episodes of syncope or passing out, fever greater than 100, vomiting, any other concerning symptoms. Coding Level of Care Code ED Front End Wheel Loader Operator for Rolfg Fwd Exam Detailed
[2021-11-09 03:10] LABS: Add Urine Microscopic? YES; Bilirubin Urine Neg (Negative); Blood Urine Neg (Negative); Glucose Urine UA Norm (Normal); Ketones Urine Negative (Negative); Leukocyte Esterase Urine Trace (Negative); Nitrate Urine Negative (Negative); Protein Urine Neg (Negative); Urine Appearance SL Hazy (CLEAR); Urine Color Yellow (Yellow); Urobilinogen Urine Norm (Negative); pH Urine 7 (5-7)
[2021-11-09 03:15] LABS: Add Urine Culture? Yes; Bacteria Urine 4+ /hpf; Mucus Urine 2+ /hpf; RBC Urine 0-4 /hpf (0-2); Squamous Epithelial Cell Urine 0-4 /hpf (0-5); WBC Urine 15-25 /hpf (0-5)
[2021-11-09 03:44] VITALS: BP 107/64; PULSE 69; RESP 18; O2SAT 99
== END 2021-11-09 03:49 | disposition home or self-care (01) ==
PROVIDERS: Emergency Provider Emergency Medicine; PCP Family Medicine
DX: I48.20 Chronic atrial fibrillation, unspecified (principal); R55 Syncope and collapse; Z79.01 Long term (current) use of anticoagulants; F17.210 Nicotine dependence, cigarettes, uncomplicated
CPT/HCPCS: 70450; 71045; 80053; 81001; 82550; 83880; 84484; 85025; 85378; 85610; 85730; 87086; 93005; 96360; 99284; J3490; J7030

== ENCOUNTER 2024-04-06 12:56 | Inpatient (IN) | payer OTHER, SELFPAY ==
[2024-04-06] VITALS (13 sets, daily range): BP systolic 105–141; BP diastolic 72–111; PULSE 87–153; RESP 13–22; TEMP 36.4–36.7; O2SAT 93–100; BMI 32.8; BMI 33.0
--- NOTE | 2024-04-06 13:03 | ECG_ITS ---
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 Measurements Intervals [place] Rate: 140 P: 0 [place]: 0 QRS: 58 QRSD: 81 T: 120 QT: 294 QTc: 449 Interpretive Statements ATRIAL FIBRILLATION WITH RAPID VENTRICULAR RESPONSE ABNORMAL QRS-T ANGLE [QRS-T AXIS DIFFERENCE > 60] Compared to ECG 11/09/2021 02:01:37 Sinus tachycardia no longer present Electronically Signed On 04-07-2024 13:37:28 CDT by Ajay Bonilla M.D. [id number] f
--- NOTE | 2024-04-06 13:04 | XR_ITS ---
WS: [id number] Exam: XR chest 1V portable [id number] Date/Time of Exam: 04/06/2024 1:42 PM Reason For Exam: sob Comparison 11/09/2021. The lungs are fully inflated and clear. Heart size within normal limits. The mediastinum is normal in contour. Bony structures appear normal. No pleural effusions. XR/XR chest 1V portable [id number] IMPRESSION: 1. Negative chest.
[2024-04-06 13:22] LABS: Basophils # 0.1 10^3/uL (0.0-0.1); Eosinophils # 0.2 10^3/uL (0.0-0.8); Eosinophils % 2.2 %; Hematocrit 40.3 % (37-53); Mean Corpuscular HGB Conc 32.3 g/dL (30-55); Mean Corpuscular Hemoglobin 30.6 pg (27-33); Mean Corpuscular Volume 94.8 fl (82-101); Mean Platelet Volume 11.6 fL (7.4-10.4); Monocytes # 0.4 10^3/uL (0.2-0.9); Monocytes % 5.2 %; Neutrophils # 5.52 10^3/uL (1.8-7.7); Neutrophils % 77.3 %; Nucleated Red Blood Cells % 0 %; Platelet Count 152 10^3/cmm (157-399); Red Blood Count 4.25 10^6/uL (3.85-5.65); Red Cell Distribution Width 15.4 % (12.1-15.1); White Blood Count 7.14 10^3/uL (3.29-11.43)
[2024-04-06 13:50] LABS: Alanine Aminotransferase 18 U/L (0-41); Albumin Level 4.3 g/dL (3.5-5.2); Alkaline Phosphatase 75 U/L (40-130); Anion Gap 15.5 (5-19); Aspartate Amino Transferase 21 U/L (0-40); Blood Urea Nitrogen 13 mg/dL (8-23); Calcium 9.5 mg/dL (8.5-10.5); Carbon Dioxide 26 mmol/L (22-29); Chloride 104 mmol/L (98-107); Creatinine Clr Calc Pharmacy 110.8941; Globulin 2.7 g/dL (1.3-4.6); Glucose 89 mg/dL (65-115); NT Pro B Type Natriuretic Pept 6444 pg/mL (0-125); Osmolality Calculated 292 mOsm/kg (285-295); Potassium 4.5 mmol/L (3.5-5.1); Sodium 141 mmol/L (136-145); Total Bilirubin 1.6 mg/dL (0.15-1.2)
--- NOTE | 2024-04-06 13:50 | W.ED.ARRPALP ---
HPI - Arrhythmia/Palpitations General: Chief Complaint: Arrhythmia/Palpitations Stated Complaint: SOB, leg swelling Time Seen by Provider: 04/06/24 13:31 Source: patient Mode of arrival: ambulatory History of Present Illness: 63-year-old male presents emergency room complaining of generally not feeling well increasing swelling in his lower extremities extending up into his abdomen. He has not had any chest pain or discomfort. He has a known history of atrial fibrillation he reports having palpitations rapid heart rate for the last several days maybe as much is a week. 5 to 7 years ago he had an ablation since then he will intermittently a couple times a month to have episodes of rapid heart rate the last for 20 to 30 minutes resolve when he sits down with rest. They have not been associated with any chest pain. Recently it has been persistent to the point now recently been short of breath with any exertion. He still not had any chest discomfort or pain. He is not currently on any medications or any anticoagulants for his atrial fibrillation. MD complaint: rapid heart beat and atrial fibrillation Onset (ago): day(s) Duration: constant Severity: moderate Context: occurred during rest Arrhythmia history: atrial fibrillation Associated symptoms: Reports nausea; Deny anxiety, cough, diaphoresis, muscle cramps, paresthesias, pre-syncope, sense of impending doom, short of breath, syncope or vomiting Review of Systems Const: Denies: fever(s), chills or diaphoresis Card: Denies: chest pain, syncope or pre-syncope Resp: Denies: dyspnea GI: Reports: nausea; Denies: abdominal pain or vomiting : Denies: dysuria, urinary frequency or urinary urgency Musc: Denies: neck pain, back pain or muscle cramps Skin/Breast: Denies: rash Psych: Denies: anxiety [facility] ED PFSH: Medical History Atrial fibrillation Surgical History History of cholecystectomy Family History Other CAD (coronary artery disease) Cancer Social History Smoking and tobacco/nicotine status: current every day tobacco/nicotine user smokeless tobacco Alcohol intake: former Substance/Drug Use: never Household members: spouse Housing: House Current occupational status: other Details: 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 Physical Exam Const: GENERAL APPEARANCE: cooperative and comfortable ORIENTATION/CONSCIOUSNESS: Yes awake, Yes oriented to person, Yes oriented to place and Yes oriented to time HENMT: COMMON NORMALS: normocephalic, atraumatic and hearing grossly normal bilaterally HEAD & SCALP: normocephalic and atraumatic Resp: COMMON NORMALS: normal respiratory effort, No retractions, No use of accessory muscles and clear to auscultation bilaterally AUSCULTATION: clear to auscultation bilaterally Cardio: COMMON NORMALS: No murmurs present (Cardio) RATE: tachycardic RHYTHM: abnormal rhythm irregularly irregular GI: COMMON NORMALS: Soft to palpation and No hepatosplenomegaly present AUSCULTATION: Yes normoactive bowel sounds PALPATION: Yes Soft to palpation, No Tenderness to palpation present (GI), No Guarding due to palpation present (GI) and Yes No hepatosplenomegaly present Extremity: COMMON NORMALS: normal to inspection, capillary refill normal, no clubbing, cyanosis or edema, no calf tenderness and no pedal edema Neuro: SENSORIUM/ORIENTATION: Yes oriented to person, Yes oriented to place and Yes oriented to time Skin: COMMON NORMALS: no rashes or lesions noted GENERAL SKIN EXAM: no rashes or lesions noted Course Vital Signs: Vital signs: Vital Signs Temperature 98.0 F 04/06/24 13:04 Pulse Rate 100 04/06/24 14:30 Respiratory Rate 16 04/06/24 13:30 Blood Pressure 141/98 04/06/24 14:30 Pulse Oximetry 100 04/06/24 14:30 Oxygen Delivery Me thod Room Air 04/06/24 13:04 MDM - Arrhythmia/Palpitations Medical Decision Making Rate controlled with Cardizem maintaining now on a drip at 5 mg/h. Will admit for A-fib with RVR congestive heart failure will need to reassess rate control anticoagulation also need to reassess heart function. Discussed with hospitalist orders written Dr. Hernandez asked that we consult Dr. Gann he has been contacted. Medical Records I reviewed the patient's medical records. Lab Data I reviewed the patient's lab results. 04/06/24 13:17 04/06/24 13:17 Radiology Impressions Chest X-Ray 04/06/24 13:04 IMPRESSION: 1. Negative chest. Laboratory Results WBC 7.14 10^3/uL (3.29-11.43) 04/06/24 13:17 RBC 4.25 10^6/uL (3.85-5.65) 04/06/24 13:17 Hgb 13.00 g/dL (11.27-16.99) 04/06/24 13:17 Hct 40.3 % (37-53) 04/06/24 13:17 MCV 94.8 fl (82-101) 04/06/24 13:17 MCH 30.6 pg (27-33) 04/06/24 13:17 MCHC 32.3 g/dL (30-55) 04/06/24 13:17 RDW 15.4 % (12.1-15.1) H 04/06/24 13:17 Plt Count 152 10^3/cmm (157-399) L 04/06/24 13:17 MPV 11.6 fL (7.4-10.4) H 04/06/24 13:17 Neut % (Auto) 77.3 % 04/06/24 13:17 Lymph % (Auto) 14.0 % 04/06/24 13:17 Lane % (Auto) 5.2 % 04/06/24 13:17 Eos % (Auto) 2.2 % 04/06/24 13:17 Baso % (Auto) 1.0 % 04/06/24 13:17 Neut # (Auto) 5.52 10^3/uL (1.8-7.7) 04/06/24 13:17 Lymph # (Auto) 1.0 10^3/uL (0.8-4.8) 04/06/24 13:17 Lane # (Auto) 0.4 10^3/uL (0.2-0.9) 04/06/24 13:17 Eos # (Auto) 0.2 10^3/uL (0.0-0.8) 04/06/24 13:17 Baso # (Auto) 0.1 10^3/uL (0.0-0.1) 04/06/24 13:17 Nucleated RBC % (auto) 0 % 04/06/24 13:17 Nucleated RBCs # 0.0 /100WBC 04/06/24 13:17 Sodium 141 mmol/L (136-145) 04/06/24 13:17 Potassium 4.5 mmol/L (3.5-5.1) 04/06/24 13:17 Chloride 104 mmol/L (98-107) 04/06/24 13:17 Carbon Dioxide 26 mmol/L (22-29) 04/06/24 13:17 Anion Gap 15.5 (5-19) 04/06/24 13:17 BUN 13 mg/dL (8-23) 04/06/24 13:17 Creatinine 1.0 mg/dL (0.7-1.2) 04/06/24 13:17 GFR Calculation 76.0 mL/min (90-130) L 04/06/24 13:17 Glucose 89 mg/dL (65-115) 04/06/24 13:17 Calculated Osmolality 292 mOsm/kg (285-295) 04/06/24 13:17 Calcium 9.5 mg/dL (8.5-10.5) 04/06/24 13:17 Total Bilirubin 1.6 mg/dL (0.15-1.2) H 04/06/24 13:17 AST 21 U/L (0-40) 04/06/24 13:17 ALT 18 U/L (0-41) 04/06/24 13:17 Alkaline Phosphatase 75 U/L (40-130) 04/06/24 13:17 Troponin T Baseline 17 ng/L (0-15) H 04/06/24 13:17 Troponin T 120 Minute 15.61 ng/L (0-15) H 04/06/24 15:13 Delta Troponin T -1.39 ABS# (0-10) L 04/06/24 15:13 NT-Pro-B Natriuret Pep 6444 pg/mL (0-125) H 04/06/24 13:17 Total Protein 7.0 g/dL (6.6-8.7) 04/06/24 13:17 Albumin 4.3 g/dL (3.5-5.2) 04/06/24 13:17 Globulin 2.7 g/dL (1.3-4.6) 04/06/24 13:17 All radiology interpretation(s) finalized by discharge Discharge Plan Discharge Patient Disposition: Admitted As Inpatient Admit Provider: Paula Hernandez Clinical Impression: Atrial fibrillation with RVR, Congestive heart failure Condition: Stable Coding Level of Care Code ED Power Equipment Mechanics Instructor for Pauline Astorga
[2024-04-06] MEDS: dilTIAZem 5 mg/mL SDV 5 mL 20 MG IVP (13:54)
[2024-04-06] MEDS: FUROsemide 10 mg/mL SDV 4mL 40 MG IVP ×2 (13:56→17:39)
[2024-04-06] MEDS: dilTIAZem 100 MG in sodium chloride 0.9% (add-van) 100 ML IV (14:00)
--- NOTE | 2024-04-06 14:44 | PC.PHAR ---
PT IS [facility]-CURRENTLY TAKES NO MEDICATIONS 04/06/24
[2024-04-06 15:35] LABS: Troponin(5th) Baseline 17 ng/L (0-15)
[2024-04-06 15:41] LABS: Troponin 5 2HR 15.61 ng/L (0-15)
[2024-04-06 15:42] LABS: Troponin 5 2HR Delta -1.39 ABS# (0-10)
--- NOTE | 2024-04-06 15:57 | USCV_ITS ---
Cosmo Blanc Age: 63 Gender: M : 1960 Exam Date: 04/06/2024 21:00 Ordering Phys: Paula Hernandez MD Technologist: JACKY [place] [facility] [place]: atrial fibrillation BP: 106 / 72 HR: 73 Rhythm: Atrial fibrillation Technical Quality: Adequate MEASUREMENTS (Male / Female) Normal Values 2D ECHO LV Diastolic Diameter PLAX 5.1 cm 4.2 - 5.9 / 3.9 - 5.3 cm IVS Diastolic Thickness 1.3 cm 0.6 - 1.0 / 0.6 - 0.9 cm IVS Systolic Thickness 1.4 cm LVPW Diastolic Thickness 1.2 cm 0.6 - 1.0 / 0.6 - 0.9 cm LVPW Systolic Thickness 1.5 cm LVOT Diameter 2.2 cm LV Ejection Fraction 2D Teich 30.0 % LV Ejection Fraction MOD 2C 23.2 % LV Ejection Fraction 2C AL 23.3 % LA Diameter 4.9 cm LA Sys Volume AL 109.5 cm cubed LA Sys Volume Index AL 42.1 cm cubed/m squared Aorta at Sinotubular Diameter 3.3 cm IVC Diameter 2.8 cm M-MODE LA Ao Ratio MM 1.7 AV Cusp Separation MM 2.0 cm DOPPLER AV Peak Velocity 126.0 cm/s LVOT Peak Velocity 76.0 cm/s AV Area Cont Eq vti 2.3 cm squared AV Area Cont Eq pk 2.2 cm squared MV Peak Velocity 118.0 cm/s MV Area PHT 5.2 cm squared Mitral E to A Ratio 659.0 TV Peak Velocity 271.3 cm/s TR Peak Velocity 299.0 cm/s TR Peak Gradient 35.8 mmHg TV Peak E Velocity 47.0 cm/s Right Atrial Pressure 15.0 mmHg Pulmonary Artery Systolic Pressu 50.8 mmHg PV Peak Velocity 62.0 cm/s FINDINGS Left Ventricle Moderately increased left ventricular cavity size. Moderately increased left ventricular cavity size. Severely decreased left ventricular systolic function. Estimated ejection fraction 25 to 30% with severe global hypokinesis. In the presence of atrial fibrillation diastolic estimation may not be accurate. Right Ventricle The right ventricle is normal in size and function. Right Atrium Moderately increased right atrial size. Left Atrium Moderately increased left atrial size. Mitral Valve Moderately thickened mitral valve. Severe mitral valve regurgitation. Aortic Valve Structurally normal aortic valve without significant sclerosis or stenosis. There is no aortic regurgitation. Tricuspid Valve Thickened tricuspid valve. Severe tricuspid valve regurgitation. Pulmonic Valve Structurally normal pulmonic valve without significant stenosis. There is no pulmonic regurgitation. There is mild pulmonary hypertension pulmonary artery systolic pressure is 35 mmHg plus RA pressure. Pericardium Normal pericardium without effusion. Aorta Normal ascending aorta dimension. IVC Dilated IVC with decreased respiratory variation. Estimated right atrial pressure 20 mmHg CONCLUSIONS 1-Moderately increased left ventricular cavity size. Moderately increased left ventricular cavity size. Severely decreased left ventricular systolic function. Estimated ejection fraction 25 to 30% with severe global hypokinesis. In the presence of atrial fibrillation diastolic estimation may not be accurate. 2-Moderately thickened mitral valve. Severe mitral valve regurgitation. 3-Thickened tricuspid valve. Severe tricuspid valve regurgitation. 4-Pulmonary artery systolic pressure is at least 55 mmHg 5-IVC is severely dilated right atrial pressure at least 20 mmHg 6-There is no pericardial effusion. Davis Anderson MD (Electronically Signed) Final Date: 06 April 2024 21:46 S
--- NOTE | 2024-04-06 16:25 | P.HP_ITS ---
Providers/Chief Complaint 2 Admitting Physician: Paula Hernandez MD Primary Care Provider: Anni Terrazas MD Chief Complaint: SOB, leg swelling History of Present Illness Cosmo Blanc is a 63 year old male with history of ablation roughly 3 years ago, has not taken metoprolol Lasix or anticoagulating agent for last 3 years, lives with his family, present to the hospital for chief complaint of worsening of swelling and palpitations. Patient is stating that for last 3 months he has been noticing weight gain swelling of his legs, swelling has worsened and it has involve his genitalia now extending all the way up towards his umbilicus he has not noticed any significant chest pain, he is working at a [employer]. He was put on Cardizem drip in the ER I have requested D-dimer which came back high at 2.2, creatinine is normal will request CTA chest and venous Doppler Cardiology consulted as well He may need cardioversion because of his active heart failure Requested echo Start patient on therapeutic Lovenox No active chest pain at the time of evaluation He is hemodynamically stable Review of Systems 2 Const: Denies: fever(s) Eyes: Denies: change in vision ENMT: Denies: throat pain Card: Reports: swelling of feet/ankles Resp: Denies: dyspnea GI: Denies: abdominal pain : Denies: flank pain Musc: Reports: extremity swelling Medications/Allergies Home Medications Medication Instructions Recorded Confirmed Last Taken Type No Known Home Medications 04/06/24 04/06/24 Unknown History Allergies Allergy/AdvReac Type Severity Reaction Status Date / Time Penicillins Allergy ALGY-Anaphy Verified 04/06/24 13:14 laxis PFSH Acute 2 PFSH: Medical History Atrial fibrillation Surgical History History of cholecystectomy Family History Other CAD (coronary artery disease) Cancer Social History Smoking and tobacco/nicotine status: current every day tobacco/nicotine user smokeless tobacco Alcohol intake: former Substance/Drug Use: never Household members: spouse Housing: House Current occupational status: other Details: 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 Vitals/I&O/Wt Last Vital Signs Temp 98.0 F 04/06/24 13:04 Pulse 89 04/06/24 16:00 Resp 21 H 04/06/24 16:00 BP 133/111 04/06/24 16:00 Pulse Ox 99 04/06/24 15:30 O2 Del Method Room Air 04/06/24 13:04 Weight last 48 hrs Weight 122.47 kg Physical Exam 2 Narrative: Sign of fluid overload Anasarca Genitalia swelling Hemodynamically stable Heart rate in 90s A-fib without RVR Pleasant and cooperative Currently on room air Nonfocal neuroexam No active crackles or wheezing noted Lower extremity swelling without any active sign of cellulitis unkept appearance Data 04/06/24 13:17 04/06/24 13:17 A&P Assessment and plan (1) Congestive heart failure: (2) Atrial fibrillation: Qualifiers: Atrial fibrillation type: paroxysmal Qualified Code(s): I48.0 - Paroxysmal atrial fibrillation (3) Elevated d-dimer: Plan Tachyarrhythmia causing acute CHF exacerbation Previous echo showed preserved ejection fraction Requested echo Start diuresis Currently patient is on Cardizem drip Start therapeutic Lovenox Patient may need cardioversion if his rhythm does not change to sinus I will request venous Doppler and CT chest rule out thromboembolic disease because his D-dimer is high Cardiology consulted Will keep him n.p.o. after midnight in case he needs cardioversion No need of digoxin at this point and his heart rate is around 90s Hemodynamic stable Full code Cardiac diet Attestations 2 Medical Necessity Statement*: More than 2 midnights anticipated Diagnoses Congestive heart failure I50.9 Paroxysmal atrial fibrillation I48.0 Atrial fibrillation type: paroxysmal Elevated d-dimer R79.89
[2024-04-06 16:44] LABS: Cholesterol 141 mg/dL (0-200); HDL Cholesterol 47 mg/dL (60-100); LDL Cholesterol Calculated 81 mg/dL (50-129); LDL HDL Ratio 1.72 RATIO (0.00-3.22); Thyroid Stimulating Hormone 1.77 uIU/mL (0.27-4.20); Triglycerides 67 mg/dL (0-150)
--- NOTE | 2024-04-06 16:56 | P.CONIM_ITS ---
Providers/Reason For Consult 2 Consulting Physician/Specialty*: Cardiology Reason for Consult*: New onset of acute decompensated heart failure unspecified Atrial fibrillation with rapid ventricle response Requesting Physician: Dr. Hernandez Attending Physician: Paula Hernandez MD Primary Care Provider: Anni Terrazas MD History of Present Illness History of Present Illness Cosmo Blanc is a 63 year old male past medical history significant for atrial flutter s/p ablation history of left atrial appendage clot who has been my patient few years ago after that he lost contact with the cardiology according to the patient after the ablation he felt pretty good and stopped taking his medications however for the past few days he noticed worsening of shortness of breath PND orthopnea lower extremity edema and weight gain today when he was not able to breathe he decided to come to the ER he was noted to be in decompensated heart failure along with A-fib with rapid ventricular response he was given IV Lasix and started on Cardizem drip. Currently denies chest pain. Twelve-lead EKG is consistent with atrial fibrillation. No significant ST's ST changes suggestive of ischemia, troponin is negative. Review of Systems 2 Const: Denies: fever(s), chills or diaphoresis Card: Denies: chest pain, syncope or pre-syncope Resp: Denies: dyspnea GI: Reports: nausea; Denies: abdominal pain or vomiting : Denies: dysuria, urinary frequency or urinary urgency Musc: Denies: neck pain, back pain or muscle cramps Skin/Breast: Denies: rash Psych: Denies: anxiety Medications/Allergies Home Medications Medication Instructions Recorded Confirmed Last Taken Type No Known Home Medications 04/06/24 04/06/24 Unknown History Allergies Allergy/AdvReac Type Severity Reaction Status Date / Time Penicillins Allergy ALGY-Anaphy Verified 04/06/24 13:14 laxis Current Medications Generic Name Dose Route Start Last Admin Trade Name Freq PRN Reason Stop Dose Admin Diltiazem HCl 100 mg/ Sodium 100 mls @ 0 mls/hr 04/06/24 14:00 04/06/24 14:00 Chloride IV 5 mg/hr .Q0M VERONIQUE 5 mls/hr Administration Protocol Per Protocol PFSH Acute 2 PFSH: Medical History Atrial fibrillation Surgical History History of cholecystectomy Family History Other CAD (coronary artery disease) Cancer Social History Smoking and tobacco/nicotine status: current every day tobacco/nicotine user smokeless tobacco Alcohol intake: former Substance/Drug Use: never Household members: spouse Housing: House Current occupational status: other Details: 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 Dietary Habits: Current diet type/program: regular Vitals/I&O/Wt Last Vital Signs Temp 98.0 F 04/06/24 13:04 Pulse 89 04/06/24 16:00 Resp 21 H 04/06/24 16:00 BP 133/111 04/06/24 16:00 Pulse Ox 99 04/06/24 15:30 O2 Del Method Room Air 04/06/24 13:04 Weight last 48 hrs Weight 270 lb Physical Exam 2 Const: OTHER: GENERAL: Patient is alert, awake and oriented x3. HEART: R irregularly irregular r S1 and S2. No murmur, rub or gallop. LUNGS: Clear to auscultate bilaterally. ABDOMEN: Soft, nontender and nondistended. Positive bowel sounds. No guarding, rebound or tenderness. CENTRAL NERVOUS SYSTEM: Grossly nonfocal. EXTREMITIES: Lower extremities with 3+ edema bilaterally Data 04/06/24 13:17 04/06/24 13:17 A&P Assessment and plan (1) Atrial fibrillation with RVR: Recurrence of atrial fibrillation with rapid ventricular response history of A- fib ablation and left atrial appendage clot. Agree with slowing down with IV Cardizem however if noted to have low ejection fraction may need to switch from Cardizem to beta-gricel or amiodarone. Please initiate IV heparin or Lovenox for anticoagulation. (2) Congestive heart failure: Patient has developed possible tachycardia induced cardiomyopathy however cannot rule out ischemic component, at this point will start patient on IV Lasix 40 twice daily along with electrolyte replacement, goal is 1 to 1.5 L negative in 24 hours. Once euvolemic and if LV function is down may need ischemic workup such as stress test versus left heart catheterization. Guideline medical therapy for heart failure will also be instituted after diuresis Coding Level of Care Code Acute Code for Chg Fwd Diagnoses Atrial fibrillation with RVR I48.91 Congestive heart failure I50.9
[2024-04-06 16:57] LABS: Estmated Average Glucose 111; Hemoglobin A1C 5.5 % (4.0-6.0)
--- NOTE | 2024-04-06 16:57 | ECG_ITS ---
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 Measurements Intervals [place] Rate: 94 P: 0 AL: 0 QRS: 70 QRSD: 82 T: 105 QT: 360 QTc: 451 Interpretive Statements ATRIAL FIBRILLATION NONSPECIFIC T-WAVE ABNORMALITY ABNORMAL RHYTHM ECG Compared to ECG 04/06/2024 12:58:18 T-wave abnormality now present Electronically Signed On 04-07-2024 13:59:37 CDT by Ajay Bonilla M.D. [id number]
[2024-04-06 17:24] LABS: Thyroid Stimulating Hormone 1.79 uIU/mL (0.27-4.20)
[2024-04-06 17:36] LABS: Magnesium 2.2 mg/dL (1.7-2.3)
[2024-04-06] MEDS: dilTIAZem 30 mg Tablet PO (17:38)
[2024-04-06] MEDS: enoxaparin 120 mg/0.8 mL Syringe SUBCUT (17:39)
--- NOTE | 2024-04-06 17:45 | USCV_ITS ---
Cosmo Blanc Age: 63 Gender: M : 1960 Exam Date: 04/06/2024 20:33 Ordering Phys: Davis Mart MD Technologist: JACKY [place] [facility] [place]: BLE 3+ pitting edema. HISTORY: BLE 3+ pitting edema. History of atrial ablation at [facility] 2022. No history of DVT per patient. PROCEDURES: Venous duplex imaging was performed in bilateral lower extremities. The following venous structures were evaluated: common femoral vein, profunda vein, proximal portion of the greater saphenous vein, superficial femoral vein, and the popliteal vein. In addition, the posterior tibial veins were evaluated. Serial compression, augmentation maneuvers, and spectral Doppler flow evaluation were performed, which were normal. Bilaterally, the common femoral, superficial femoral, profunda femoral, popliteal, posterior tibial, and greater saphenous veins were identified and interrogated in the standard fashion. These veins were found to be easily compressible with spontaneous blood flow. No evidence of thrombus noted. Highly pulsatile bilateral venous compartments suggests CHF. CONCLUSIONS No evidence of right lower extremity DVT. No evidence of left lower extremity DVT. Increased venous pulsatility bilaterally suggestive of Right heart dysfunction Benjie Reyes MD (Electronically Signed) Final Date: 07 April 2024 09:43 S
[2024-04-06 19:50] LABS: Troponin 5 6HR 17.89 ng/L (0-15); Troponin 5 6HR Delta 0.89 ng/L (0-12)
--- NOTE | 2024-04-06 21:40 | ECG_ITS ---
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 Measurements Intervals [place] Rate: 89 P: 0 GA: 0 QRS: 110 QRSD: 96 T: 180 QT: 379 QTc: 464 Interpretive Statements ATRIAL FIBRILLATION POSSIBLE RIGHT VENTRICULAR HYPERTROPHY [SOME/ALL OF: PROMINENT R IN V1, LATE TRANSITION, RAD, DUANE, SSS] POSSIBLE ANTERIOR MYOCARDIAL INFARCTION , PROBABLY OLD [30 ms Q WAVE IN V3/V4, OR R < 0.2 mV IN V4] Compared to ECG 04/06/2024 16:57:57 Myocardial infarct finding now present T-wave abnormality no longer present Electronically Signed On 04-07-2024 14:00:41 CDT by Ajay Bonilla M.D. [id number]
[2024-04-07] VITALS (9 sets, daily range): BP systolic 90–118; BP diastolic 67–89; PULSE 68–115; RESP 16–22; TEMP 36.3–36.8; O2SAT 91–97; BMI 31.4
[2024-04-07] MEDS: enoxaparin 120 mg/0.8 mL Syringe SUBCUT (04:32)
[2024-04-07] MEDS: FUROsemide 10 mg/mL SDV 4mL 40 MG IVP ×2 (04:33→18:24)
[2024-04-07 05:02] LABS: Basophils # 0.1 10^3/uL (0.0-0.1); Basophils % 1.3 %; Eosinophils # 0.3 10^3/uL (0.0-0.8); Lymphocytes # 1.2 10^3/uL (0.8-4.8); Mean Corpuscular HGB Conc 33.4 g/dL (30-55); Mean Corpuscular Hemoglobin 31.2 pg (27-33); Mean Corpuscular Volume 93.4 fl (82-101); Mean Platelet Volume 11.5 fL (7.4-10.4); Monocytes # 0.5 10^3/uL (0.2-0.9); Monocytes % 9.8 %; Neutrophils # 2.66 10^3/uL (1.8-7.7); Neutrophils % 56.5 %; Nucleated Red Blood Cells % 0 %; Platelet Count 142 10^3/cmm (157-399); Red Blood Count 4.07 10^6/uL (3.85-5.65); Red Cell Distribution Width 15.4 % (12.1-15.1)
[2024-04-07 05:27] LABS: Alanine Aminotransferase 13 U/L (0-41); Albumin Level 3.7 g/dL (3.5-5.2); Alkaline Phosphatase 69 U/L (40-130); Anion Gap 14.9 (5-19); Aspartate Amino Transferase 17 U/L (0-40); Blood Urea Nitrogen 15 mg/dL (8-23); Calcium 9.3 mg/dL (8.5-10.5); Carbon Dioxide 27 mmol/L (22-29); Chloride 102 mmol/L (98-107); Creatinine Clr Calc Pharmacy 108.5798; Globulin 2.5 g/dL (1.3-4.6); Glucose 92 mg/dL (65-115); Osmolality Calculated 290 mOsm/kg (285-295); Potassium 3.9 mmol/L (3.5-5.1); Sodium 140 mmol/L (136-145); Total Bilirubin 1.2 mg/dL (0.15-1.2); Total Protein 6.2 g/dL (6.6-8.7)
--- NOTE | 2024-04-07 08:57 | PC.CHAP ---
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 [] Patient/Family/Request visit [] Outpatient visit [] Follow-up visit [] Physician referral [] Code/Alert [] Routine visit [] Staff referral [] Actively dying [] Patient sleeping [] Family support [] [] Out of room [] Palliative care [] [] Receiving care in room [] Pre-surgical visit [] Trauma [] Long length of stay [] ICU visit [] Other: Relational/Emotional Strength [] Patient feels connected with others/family/visitors/staff [] Distress [] Loneliness/isolation [] Abandonment Spirituality of Patient [] Person of Jessica [] Attends Advent of their Jessica [] Believes in Prayer [] Reads Bible or Mosque materials [] There are Spiritual issues to be addressed Custodian Manager Interventions [] Prayer [] Active listening [] Non-anxious presence [] Spiritual/emotional support [] Crisis/trauma care [] Spiritual counseling [] Bereavement support [] Provided bereavement packet [] Provided Bible/devotional materials [] Provided toy/stuffed animal, coloring book to patient or family member [] Provided Communion [] Anointing/[place] [] Salvation [] Completed spiritual assessment [] Other: Impact on Illness or Injury [] Angry [] Fearful [] Anxious [] Often cries [] Exhaustion [] Unable to work [] Unable to attend lutheran [] Unable to walk/stand [] Unable to read [] Unable to drive [] Unable to eat/drink [] Unable to sleep [] Unable to be with family [] Patient intubated [] Other: Summary Time spent with patient
--- NOTE | 2024-04-07 09:30 | CTR_ITS ---
PROCEDURE INFORMATION: Exam: CTA Chest With Contrast Exam date and time: 04/07/2024 10:08 AM Age: 63 years old Clinical indication: Dyspnea; Additional info: Swelling, a-fib TECHNIQUE: Imaging protocol: Computed tomographic angiography of the chest with contrast. Exam focused on the arteries. 3D rendering (Not supervised by radiologist): MIP and/or 3D reconstructed images were created by the technologist. Radiation optimization: All CT scans at this facility use at least one of these dose optimization techniques: automated exposure control; mA and/or kV adjustment per patient size (includes targeted exams where dose is matched to clinical indication); or iterative reconstruction. Contrast material: OMNI 350; Contrast volume: 100 ml; Contrast route: INTRAVENOUS (IV); COMPARISON: CR XR chest 1V portable [id number] 04/06/2024 1:36 PM RADIATION DOSE METRICS: Total DLP (mGy-cm): 486.1 FINDINGS: Pulmonary arteries: Normal. No pulmonary emboli. Aorta: No aortic aneurysm. Poorly opacified to evaluate for aortic dissection. Lungs: Bibasilar atelectasis. Diffuse bronchial wall thickening with mucous plugging. Mild septal thickening. Diffuse ground-glass opacities. Calcified lesion in the inferior right hepatic lobe. Pleural spaces: Unremarkable. No pneumothorax. No pleural effusion. Heart: Unremarkable. No cardiomegaly. No pericardial effusion. Lymph nodes: Unremarkable. No enlarged lymph nodes. Gallbladder and biliary ducts: Status post cholecystectomy. Kidneys and ureters: Partially visualized simple left renal cyst measuring 3.5 cm, requiring no further follow-up. Bones/joints: Unremarkable. No acute fracture. Soft tissues: Mild body wall edema. CT/CT angio chest PE protcl [id number] IMPRESSION: 1. No pulmonary embolism. 2. Diffuse bronchial wall thickening with mucous plugging, concerning for bronchitis. COMMENTS: Consistent with the [employer]'s Incidental Findings Committee white paper (J Am Amari Radiol 2018): Any incidental renal lesion less than 1 cm or classified as too small to characterize, or any incidental cystic renal lesion characterized as simple-appearing, is likely benign. No follow-up imaging is recommended for these lesions per consensus recommendations based on imaging criteria.
[2024-04-07] MEDS: metoprolol succinate ER (24 HR) 25 mg Tablet PO (09:37)
[2024-04-07] MEDS: pantoprazole DR 40 mg Tablet PO (09:37)
[2024-04-07] MEDS: sennosides-docusate Tablet 1 TAB PO (09:37)
[2024-04-07] MEDS: iohexol 350 mg/mL 500 mL Btl (per mL) IV (10:12)
--- NOTE | 2024-04-07 12:39 | P.PN_ITS ---
Subjective 2 Subjective: This patient is 63 came to the hospital with symptoms consistent with congestive heart failure. He had a ablation sometime ago for atrial fibrillation. Sounds like he has been in atrial fibrillation for several weeks with a rapid ventricular response. He came in with heart failure with an elevated BNP and negative troponin. His echo reveals globally hypokinetic LV with an ejection fraction around 25%. He has severe tricuspid and mitral regurgitation with biatrial enlargement and a pulmonary artery pressure greater than 55 mmHg and a right atrial pressure of 20 mmHg. His chest x-ray is negative. Venous duplex is negative. He is being treated with intravenous Lasix 40 mg every 12 hours, full dose Lovenox, metoprolol 25 mg daily and IV amiodarone. His heart rates are still running above 100 bpm. He has been n.p.o. for what his says is a cardioversion. Vitals/I&O/Wt Last Vital Signs Temp 98.0 F 04/07/24 11:32 Pulse 115 H 04/07/24 11:32 Resp 22 H 04/07/24 11:32 BP 118/89 04/07/24 11:32 Pulse Ox 97 04/07/24 11:32 O2 Del Method Room Air 04/07/24 11:32 04/06/24 04/07/24 04/07/24 22:59 06:59 14:59 Intake Total 240 / 240 Output Total 5400 / 5400 1100 / 6500 2925 / 2925 Balance -5160 / -5160 -1100 / -6260 -2925 / -2925 Weight last 48 hrs Weight 258 lb 6 oz Weight 271 lb 6.4 oz Weight 270 lb Physical Exam 2 Narrative: GENERAL: In general he looks mildly short of breath. HEENT: Exam within normal limits. NECK: Supple without jugular vein distention. The carotid upstroke is normal without bruits. BACK: Exam normal. LUNGS: Clear. HEART: Irregular rate and rhythm ABDOMEN: Benign without organomegaly or tenderness. EXTREMITIES: No edema. 3+ edema NEUROLOGIC: Exam normal. SKIN: Unremarkable. Data 04/07/24 04:36 04/07/24 04:36 A&P Assessment and plan (1) Atrial fibrillation: Qualifiers: Atrial fibrillation type: paroxysmal Qualified Code(s): I48.0 - Paroxysmal atrial fibrillation (2) Congestive heart failure: (3) Mitral regurgitation: (4) Tricuspid regurgitation: (5) Pulmonary HTN: Plan This is almost certainly a tachycardia related cardiomyopathy. My guess is that he has been in atrial fibrillation for several weeks with a rapid rate. The hypokinesis is global and he has four-chamber enlargement with valvular regurgitation and an elevated pulmonary pressure. This is all consistent with uncontrolled atrial fibrillation. I do not think this is going to buffing turner and counter to be ischemic in nature. He should be allowed to eat. There would not be an indication to cardiovert him now for 2 reasons. 1 would be he has been in atrial fibrillation for weeks and he most certainly has thrombi in the atria. The second is that without a reasonable course of amiodarone he will not stay in sinus rhythm if he is cardioverted now. Therefore, I recommend simply changing him over to p.o. amiodarone, increasing his beta-gricel dose and putting him on apixaban. He will need intravenous Lasix for 2 or 3 more days. Upon discharge he should go home on amiodarone, beta-gricel and a factor Xa inhibitor. He should be brought back in several weeks for an attempt at cardioversion. I do not think it is useful to try it earlier than that. Attestations 2 Medical Necessity Statement*: Hospitalization required for management of heart failure and atrial fibrillation with a rapid ventricular response and Moderate Time for a total of 35 minutes, includes reviewing past or interval history, examining/interviewing patient, placing orders, counseling patient/family/other support, updating patient/family/other support, discussing plan of care with staff, communicating with other healthcare providers, documenting encounter and coordinating care Diagnoses Paroxysmal atrial fibrillation I48.0 Atrial fibrillation type: paroxysmal Congestive heart failure I50.9 Mitral regurgitation I34.0 Tricuspid regurgitation I07.1 Pulmonary HTN I27.20
[2024-04-07] MEDS: amiodarone 150 MG/100 ML PREMIX 400 MG IV (13:01)
[2024-04-07] MEDS: metoprolol tartrate 25 mg Tablet 50 MG PO ×2 (13:01→18:24)
--- NOTE | 2024-04-07 13:32 | P.PN_ITS ---
Subjective 2 Subjective: seen this am off cardizem drip, still in afib, bp soft npo for cardioversion, i told patient i dont think we will be cardioverting yet i talked to patient that i will be starting amiodarone. Vitals/I&O/Wt Last Vital Signs Temp 98.0 F 04/07/24 11:32 Pulse 115 H 04/07/24 11:32 Resp 22 H 04/07/24 11:32 BP 118/89 04/07/24 11:32 Pulse Ox 97 04/07/24 11:32 O2 Del Method Room Air 04/07/24 11:32 04/06/24 04/07/24 04/07/24 22:59 06:59 14:59 Intake Total 240 / 240 Output Total 5400 / 5400 1100 / 6500 4425 / 4425 Balance -5160 / -5160 -1100 / -6260 -4425 / -4425 Weight last 48 hrs Weight 117.197 kg Weight 123.105 kg Weight 122.47 kg Physical Exam 2 Narrative: resting comfortably in bed Heart rate in 90s A-fib with RVR Pleasant and cooperative Currently on room air Nonfocal neuroexam No active crackles or wheezing noted Lower extremity swelling without any active sign of cellulitis unkept appearance Data 04/07/24 04:36 04/07/24 04:36 A&P Assessment and plan (1) Congestive heart failure: (2) Atrial fibrillation: Qualifiers: Atrial fibrillation type: paroxysmal Qualified Code(s): I48.0 - Paroxysmal atrial fibrillation (3) Elevated d-dimer: Plan Tachyarrhythmia causing acute CHF exacerbation Previous echo showed preserved ejection fraction Requested echo Start diuresis Currently patient is on Cardizem drip Start therapeutic Lovenox Patient may need cardioversion if his rhythm does not change to sinus I will request venous Doppler and CT chest rule out thromboembolic disease because his D-dimer is high Cardiology consulted Will keep him n.p.o. 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
[2024-04-07] MEDS: amiodarone 200 mg Tablet 400 MG PO (18:24)
--- NOTE | 2024-04-07 18:36 | PC.NURSE ---
Pt will be transferred to the Med surg dept once he is finished eating supper.
[2024-04-07] MEDS: apixaban 5 mg Tablet PO (20:07)
[2024-04-08] VITALS (9 sets, daily range): BP systolic 95–116; BP diastolic 62–78; PULSE 68–121; RESP 15–17; TEMP 36.5–36.8; O2SAT 94–98; BMI 30.3
[2024-04-08] MEDS: FUROsemide 10 mg/mL SDV 4mL 40 MG IVP ×2 (04:35→18:19)
[2024-04-08 06:11] LABS: Basophils # 0.1 10^3/uL (0.0-0.1); Basophils % 1.5 %; Eosinophils # 0.3 10^3/uL (0.0-0.8); Eosinophils % 6.8 %; Lymphocytes # 1.2 10^3/uL (0.8-4.8); Lymphocytes % 24.7 %; Mean Corpuscular HGB Conc 32.7 g/dL (30-55); Mean Corpuscular Hemoglobin 31.2 pg (27-33); Mean Corpuscular Volume 95.2 fl (82-101); Mean Platelet Volume 12.4 fL (7.4-10.4); Monocytes # 0.5 10^3/uL (0.2-0.9); Monocytes % 9.7 %; Neutrophils # 2.69 10^3/uL (1.8-7.7); Neutrophils % 56.7 %; Nucleated Red Blood Cells % 0 %; Platelet Count 155 10^3/cmm (157-399); Red Blood Count 4.62 10^6/uL (3.85-5.65); Red Cell Distribution Width 15.3 % (12.1-15.1); White Blood Count 4.74 10^3/uL (3.29-11.43)
[2024-04-08 06:39] LABS: Anion Gap 15.3 (5-19); Blood Urea Nitrogen 18 mg/dL (8-23); Carbon Dioxide 32 mmol/L (22-29); Chloride 96 mmol/L (98-107); Creatinine Clr Calc Pharmacy 97.0463; Glomerular Filtration Rate 68.1 mL/min (90-130); Glucose 109 mg/dL (65-115); Osmolality Calculated 290 mOsm/kg (285-295); Potassium 4.3 mmol/L (3.5-5.1); Sodium 139 mmol/L (136-145)
--- NOTE | 2024-04-08 07:54 | PM.PN ---
Subjective Subjective: Patient has been transferred to the [facility] unit. He is up and around. He is urinating well. The recording of the I and O is incomplete because he urinates into the urinal and then sometimes pours down the drain. According to the chart he has had of fluid balance of -7775 mL. I do not know the timeframe of that. He states his legs are improved and his breathing is improved. He has developed a contraction alkalosis with a elevated serum bicarbonate. His BUN and creatinine are still within normal range though his GFR is slightly low. I switched him over to medication by mouth yesterday. Increasing his beta-gricel has lowered his heart rate into a more reasonable range. His oximeter is 94 on room air. His only complaint today is dry skin on the legs Vitals/I&O/Wt Last Vital Signs Temp 97.8 F 04/08/24 04:00 Pulse 83 04/08/24 04:00 Resp 17 04/08/24 04:00 BP 107/65 04/08/24 04:00 Pulse Ox 94 04/08/24 04:00 O2 Del Method Room Air 04/08/24 04:00 04/07/24 04/08/24 04/08/24 22:59 06:59 14:59 Intake Total 240 / 340 360 / 700 Output Total 900 / 5325 4000 / 9325 850 / 850 Balance -660 / -4985 -3640 / -8625 -850 / -850 Weight last 48 hrs Weight 249 lb 3 oz Weight 249 lb 3 oz Weight 258 lb 6 oz Weight 271 lb 6.4 oz Weight 270 lb Physical Exam Narrative: GENERAL: In general he looks comfortable HEENT: Exam within normal limits. NECK: Supple without jugular vein distention. The carotid upstroke is normal without bruits. BACK: Exam normal. LUNGS: Clear. HEART: Irregular rate and rhythm. ABDOMEN: Benign without organomegaly or tenderness. EXTREMITIES: 2-3+ edema NEUROLOGIC: Exam normal. SKIN: Unremarkable. Data 04/08/24 05:17 04/08/24 05:17 A&P Assessment and plan (1) Atrial fibrillation: Qualifiers: Atrial fibrillation type: paroxysmal Qualified Code(s): I48.0 - Paroxysmal atrial fibrillation (2) Congestive heart failure: Qualifiers: Heart failure type: biventricular Qualified Code(s): I50.82 - Biventricular heart failure (3) Mitral regurgitation: Qualifiers: Cardiac valve disease etiology: nonrheumatic Qualified Code(s): I34.0 - Nonrheumatic mitral (valve) insufficiency (4) Tricuspid regurgitation: Qualifiers: Cardiac valve disease etiology: nonrheumatic Qualified Code(s): I36.1 - Nonrheumatic tricuspid (valve) insufficiency (5) Pulmonary HTN: Plan Continue same plan. He should be on IV Lasix for a couple more days. We need to get more diuresis. Upon discharge she should go home on the medications currently prescribed however the amiodarone dose should be 400 mg daily when he goes home. This should continue for a week and then decreased to 200 mg daily. He should go home on 40 mg of Lasix once daily. Attestations Medical Necessity Statement*: Hospitalization for management of congestive heart failure and cardiomyopathy and atrial fibrillation and Moderate Time for a total of 30 minutes, includes reviewing past or interval history, examining/interviewing patient, counseling patient/family/other support, updating patient/family/other support, discussing plan of care with staff, communicating with other healthcare providers and documenting encounter Diagnoses Paroxysmal atrial fibrillation I48.0 Atrial fibrillation type: paroxysmal Biventricular congestive heart failure I50.82 Heart failure type: biventricular Nonrheumatic mitral valve regurgitation I34.0 Cardiac valve disease etiology: nonrheumatic Nonrheumatic tricuspid valve regurgitation I36.1 Cardiac valve disease etiology: nonrheumatic Pulmonary HTN I27.20
[2024-04-08] MEDS: amiodarone 200 mg Tablet 400 MG PO ×2 (08:51→18:19)
[2024-04-08] MEDS: metoprolol tartrate 25 mg Tablet 50 MG PO ×2 (08:52→18:19)
[2024-04-08] MEDS: pantoprazole DR 40 mg Tablet PO (08:52)
[2024-04-08] MEDS: spironolactone 25 mg Tablet 12.5 MG PO (08:52)
[2024-04-08] MEDS: lisinopril 2.5 mg Tablet PO (08:53)
[2024-04-08] MEDS: sennosides-docusate Tablet 1 TAB PO (08:53)
[2024-04-08] MEDS: apixaban 5 mg Tablet PO ×2 (08:53→20:05)
--- NOTE | 2024-04-08 14:14 | P.PN_ITS ---
Subjective 2 Subjective: Seen this morning No acute events overnight. Patient is 7 L negative however unsure if this is accurate. He says he is starting to feel better. Vitals/I&O/Wt Last Vital Signs Temp 98.0 F 04/08/24 11:36 Pulse 94 04/08/24 11:36 Resp 15 04/08/24 11:36 BP 114/76 04/08/24 11:36 Pulse Ox 97 04/08/24 11:36 O2 Del Method Room Air 04/08/24 11:36 04/07/24 04/08/24 04/08/24 22:59 06:59 14:59 Intake Total 240 / 340 360 / 700 240 / 240 Output Total 900 / 5325 4000 / 9325 2750 / 2750 Balance -660 / -4985 -3640 / -8625 -2510 / -2510 Weight last 48 hrs Weight 113.03 kg Weight 113.03 kg Weight 117.197 kg Weight 123.105 kg Physical Exam 2 Narrative: resting comfortably in bed Heart rate in 90s A-fib, rate controlled Pleasant and cooperative Currently on room air Nonfocal neuroexam No active crackles or wheezing noted 2-3+ edema bilateral lower extremities. Data 04/08/24 05:17 04/08/24 05:17 A&P Assessment and plan (1) Congestive heart failure: Qualifiers: Heart failure type: biventricular Qualified Code(s): I50.82 - Biventricular heart failure (2) Atrial fibrillation: Qualifiers: Atrial fibrillation type: paroxysmal Qualified Code(s): I48.0 - Paroxysmal atrial fibrillation (3) Elevated d-dimer: Plan Tachyarrhythmia causing acute CHF exacerbation Previous echo showed preserved ejection fraction Requested echo Start diuresis Currently patient is on Cardizem drip Start therapeutic Lovenox Patient may need cardioversion if his rhythm does not change to sinus I will request venous Doppler and CT chest rule out thromboembolic disease because his D-dimer is high Cardiology consulted Will keep him n.p.o. 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
[2024-04-09] VITALS (10 sets, daily range): BP systolic 93–108; BP diastolic 57–71; PULSE 68–94; RESP 16–19; TEMP 36.4–37; O2SAT 92–99
[2024-04-09] MEDS: FUROsemide 10 mg/mL SDV 4mL 40 MG IVP (05:33)
[2024-04-09 06:06] LABS: Blood Urea Nitrogen 25 mg/dL (8-23); Calcium 9.5 mg/dL (8.5-10.5); Carbon Dioxide 29 mmol/L (22-29); Chloride 100 mmol/L (98-107); Creatinine Clr Calc Pharmacy 86.9538; Glomerular Filtration Rate 61.6 mL/min (90-130); Glucose 92 mg/dL (65-115); Osmolality Calculated 292 mOsm/kg (285-295); Sodium 139 mmol/L (136-145)
--- NOTE | 2024-04-09 08:58 | P.PN_ITS ---
Subjective 2 Subjective: Cosmo continues to improve. His breathing is much improved. His edema continues to decrease. Yesterday his fluid balance was -5870 mL. He had 7500 mL of urine output. Heart rates have been consistently near 100. Room air saturations are 99%. Rhythm is still atrial fibrillation. Blood pressures somewhat soft but adequate. Vitals/I&O/Wt Last Vital Signs Temp 97.6 F 04/09/24 08:00 Pulse 80 04/09/24 08:00 Resp 18 04/09/24 08:00 BP 99/71 04/09/24 08:00 Pulse Ox 99 04/09/24 08:00 O2 Del Method Room Air 04/09/24 08:00 04/08/24 04/09/24 04/09/24 22:59 06:59 14:59 Intake Total 720 / 960 480 / 1440 240 / 240 Output Total 2950 / 5700 2200 / 7900 500 / 500 Balance -2230 / -4740 -1720 / -6460 -260 / -260 Weight last 48 hrs Weight 237 lb 1.6 oz Weight 249 lb 3 oz Weight 249 lb 3 oz Physical Exam 2 Narrative: GENERAL: In general he looks improved and feels well HEENT: Exam within normal limits. NECK: Supple without jugular vein distention. The carotid upstroke is normal without bruits. BACK: Exam normal. LUNGS: Clear. HEART: Irregularly irregular ABDOMEN: Benign without organomegaly or tenderness. EXTREMITIES: 2+ edema. NEUROLOGIC: Exam normal. SKIN: Unremarkable. Data 04/08/24 05:17 04/09/24 04:55 A&P Assessment and plan (1) Atrial fibrillation: Qualifiers: Atrial fibrillation type: paroxysmal Qualified Code(s): I48.0 - Paroxysmal atrial fibrillation (2) Congestive heart failure: Qualifiers: Heart failure type: biventricular Qualified Code(s): I50.82 - Biventricular heart failure (3) Mitral regurgitation: Qualifiers: Cardiac valve disease etiology: nonrheumatic Qualified Code(s): I34.0 - Nonrheumatic mitral (valve) insufficiency (4) Tricuspid regurgitation: Qualifiers: Cardiac valve disease etiology: nonrheumatic Qualified Code(s): I36.1 - Nonrheumatic tricuspid (valve) insufficiency (5) Anticoagulation adequate with anticoagulant therapy: (6) Pulmonary HTN: Plan He continues to improve. We will change him over to Lasix by mouth today. Other medications will remain the same. He may require some additional adjustments based on his blood pressure and heart rate before discharge. Attestations 2 Medical Necessity Statement*: Hospitalization for management of heart failure, cardiomyopathy and atrial fibrillation. and Moderate Time for a total of 30 minutes, includes reviewing past or interval history, examining/interviewing patient, placing orders, counseling patient/family/other support, updating patient/family/other support, discussing plan of care with staff, communicating with other healthcare providers, documenting encounter and coordinating care Diagnoses Paroxysmal atrial fibrillation I48.0 Atrial fibrillation type: paroxysmal Biventricular congestive heart failure I50.82 Heart failure type: biventricular Nonrheumatic mitral valve regurgitation I34.0 Cardiac valve disease etiology: nonrheumatic Nonrheumatic tricuspid valve regurgitation I36.1 Cardiac valve disease etiology: nonrheumatic Anticoagulation adequate with anticoagulant therapy Z79.01 Pulmonary HTN I27.20
[2024-04-09] MEDS: pantoprazole DR 40 mg Tablet PO (09:11)
[2024-04-09] MEDS: amiodarone 200 mg Tablet 400 MG PO ×2 (09:11→17:27)
[2024-04-09] MEDS: sennosides-docusate Tablet 1 TAB PO (09:12)
[2024-04-09] MEDS: spironolactone 25 mg Tablet 12.5 MG PO (09:12)
[2024-04-09] MEDS: metoprolol tartrate 25 mg Tablet 50 MG PO ×2 (09:12→17:27)
[2024-04-09] MEDS: apixaban 5 mg Tablet PO ×2 (09:12→20:23)
[2024-04-09] MEDS: lisinopril 2.5 mg Tablet PO (09:12)
--- NOTE | 2024-04-09 11:51 | PC.NURSE ---
Provider is updated that patients lisinopril was held this morning due to low blood pressures.
--- NOTE | 2024-04-09 13:38 | PM.PN ---
Subjective Subjective: seen today resting comfortably no active complaints Vitals/I&O/Wt Last Vital Signs Temp 97.6 F 04/09/24 12:00 Pulse 75 04/09/24 12:00 Resp 18 04/09/24 12:00 BP 99/66 04/09/24 12:00 Pulse Ox 97 04/09/24 12:00 O2 Del Method Room Air 04/09/24 12:00 04/08/24 04/09/24 04/09/24 22:59 06:59 14:59 Intake Total 720 / 960 480 / 1440 720 / 720 Output Total 2950 / 5700 2200 / 7900 2250 / 2250 Balance -2230 / -4740 -1720 / -6460 -1530 / -1530 Weight last 48 hrs Weight 107.547 kg Weight 113.03 kg Weight 113.03 kg Physical Exam Narrative: resting comfortably in bed Heart rate in 90s A-fib, rate controlled Pleasant and cooperative Currently on room air Nonfocal neuroexam No active crackles or wheezing noted 1+ edema bilateral lower extremities. Data 04/08/24 05:17 04/09/24 04:55 A&P Assessment and plan (1) Congestive heart failure: Qualifiers: Heart failure type: biventricular Qualified Code(s): I50.82 - Biventricular heart failure (2) Atrial fibrillation: Qualifiers: Atrial fibrillation type: paroxysmal Qualified Code(s): I48.0 - Paroxysmal atrial fibrillation (3) Elevated d-dimer: Plan Tachyarrhythmia causing acute CHF exacerbation Previous echo showed preserved ejection fraction Requested echo Start diuresis Currently patient is on Cardizem drip Start therapeutic Lovenox Patient may need cardioversion if his rhythm does not change to sinus I will request venous Doppler and CT chest rule out thromboembolic disease because his D-dimer is high Cardiology consulted Will keep him n.p.o. 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 Diagnoses Biventricular congestive heart failure I50.82 Heart failure type: biventricular Paroxysmal atrial fibrillation I48.0 Atrial fibrillation type: paroxysmal Elevated d-dimer R79.89
[2024-04-09] MEDS: FUROsemide 40 mg Tablet PO (15:54)
[2024-04-10] VITALS (16 sets, daily range): BP systolic 75–106; BP diastolic 50–73; PULSE 53–100; RESP 17–19; TEMP 36.4–36.8; O2SAT 91–98
--- NOTE | 2024-04-10 07:45 | P.PN_ITS ---
Subjective 2 Subjective: Cosmo continues to slowly improve. Edema continues to decrease. Urine output still quite good. Negative fluid balance of 3090 mL yesterday. He was switched to Lasix by mouth yesterday. Blood pressures are still quite soft however he is tolerating these without any difficulty. Heart rates in the 80s. Able to lie flat without getting short of breath. Glomerular filtration rate 61. Vitals/I&O/Wt Last Vital Signs Temp 97.7 F 04/10/24 07:38 Pulse 81 04/10/24 07:38 Resp 19 H 04/10/24 07:38 BP 95/55 04/10/24 07:38 Pulse Ox 98 04/10/24 07:38 O2 Del Method Room Air 04/10/24 07:38 04/09/24 04/10/24 04/10/24 22:59 06:59 14:59 Intake Total 720 / 1440 570 / 2010 Output Total 1200 / 3450 1650 / 5100 Balance -480 / -2010 -1080 / -3090 Weight last 48 hrs Weight 236 lb 2 oz Weight 237 lb 3.2 oz Weight 237 lb 1.6 oz Physical Exam 2 Narrative: GENERAL: Generally looks and feels well HEENT: Exam within normal limits. NECK: Supple without jugular vein distention. The carotid upstroke is normal without bruits. BACK: Exam normal. LUNGS: Clear. HEART: Irregular rate and rhythm. ABDOMEN: Benign without organomegaly or tenderness. EXTREMITIES: 2+ edema. NEUROLOGIC: Exam normal. SKIN: Unremarkable. Data 04/08/24 05:17 04/09/24 04:55 A&P Assessment and plan (1) Atrial fibrillation: Qualifiers: Atrial fibrillation type: paroxysmal Qualified Code(s): I48.0 - Paroxysmal atrial fibrillation (2) Congestive heart failure: Qualifiers: Heart failure type: biventricular Qualified Code(s): I50.82 - Biventricular heart failure (3) Mitral regurgitation: Qualifiers: Cardiac valve disease etiology: nonrheumatic Qualified Code(s): I34.0 - Nonrheumatic mitral (valve) insufficiency (4) Tricuspid regurgitation: Qualifiers: Cardiac valve disease etiology: nonrheumatic Qualified Code(s): I36.1 - Nonrheumatic tricuspid (valve) insufficiency (5) Anticoagulation adequate with anticoagulant therapy: (6) Pulmonary HTN: Plan He is nearing being able to go home. Upon his discharge he should go home on metoprolol to tartrate 50 mg twice a day, lisinopril 2.5 mg daily, Aldactone 12.5 mg daily, amiodarone 400 mg once daily for a week then 200 mg daily, furosemide 40 mg daily, Eliquis 5 mg twice daily. He should be seen in approximately a month for cardioversion if it is necessary at that time. Attestations 2 Medical Necessity Statement*: Management of heart failure, tachycardia related cardiomyopathy and atrial fibrillation and Moderate Time for a total of 35 minutes, includes reviewing past or interval history, examining/interviewing patient, counseling patient/family/other support, updating patient/family/other support, discussing plan of care with staff, communicating with other healthcare providers and documenting encounter Diagnoses Paroxysmal atrial fibrillation I48.0 Atrial fibrillation type: paroxysmal Biventricular congestive heart failure I50.82 Heart failure type: biventricular Nonrheumatic mitral valve regurgitation I34.0 Cardiac valve disease etiology: nonrheumatic Nonrheumatic tricuspid valve regurgitation I36.1 Cardiac valve disease etiology: nonrheumatic Anticoagulation adequate with anticoagulant therapy Z79.01 Pulmonary HTN I27.20
[2024-04-10] MEDS: metoprolol tartrate 25 mg Tablet 50 MG PO ×2 (08:10→18:09)
[2024-04-10] MEDS: pantoprazole DR 40 mg Tablet PO (08:10)
[2024-04-10] MEDS: lisinopril 2.5 mg Tablet PO (08:10)
[2024-04-10] MEDS: sennosides-docusate Tablet 1 TAB PO (08:10)
[2024-04-10] MEDS: apixaban 5 mg Tablet PO ×2 (08:10→20:14)
[2024-04-10] MEDS: amiodarone 200 mg Tablet 400 MG PO (08:10)
[2024-04-10] MEDS: spironolactone 25 mg Tablet 12.5 MG PO (08:10)
[2024-04-10] MEDS: FUROsemide 40 mg Tablet PO ×2 (08:11→15:31)
[2024-04-10 12:15] LABS: Iron 72 ug/dL (59-158); Percent Saturation 22.3 % (20-50); Total Iron Binding Capacity 322 mcg/dl; Unsaturated Iron Binding 250 ug/dL (112-347)
[2024-04-10 12:31] LABS: Vitamin B12 446 pg/mL (232-1245)
--- NOTE | 2024-04-10 14:03 | PC.NURSE ---
Provider notified that patient ambulated about [address] Heart rate ranged from 97-126 beats per min. Patient was in A Fib prior to ambulation and after ambulation.
--- NOTE | 2024-04-10 16:18 | P.PN_ITS ---
Subjective 2 Subjective: Hospital course, labs appreciated patient seen sitting comfortably in bed. He is on room air. Has yet to ambulate. Denies any nausea, vomiting, headache. States breathing is improving Vitals/I&O/Wt Last Vital Signs Temp 97.7 F 04/10/24 12:00 Pulse 100 04/10/24 14:00 Resp 18 04/10/24 12:00 BP 98/67 04/10/24 12:00 Pulse Ox 96 04/10/24 12:00 O2 Del Method Room Air 04/10/24 12:00 04/10/24 04/10/24 04/10/24 06:59 14:59 22:59 Intake Total 570 / 2010 960 / 960 800 / 1760 Output Total 1650 / 5100 1000 / 1000 500 / 1500 Balance -1080 / -3090 -40 / -40 300 / 260 Weight last 48 hrs Weight 107.104 kg Weight 107.592 kg Weight 107.547 kg Physical Exam 2 Narrative: resting comfortably in bed Heart rate in 90s A-fib, rate controlled Pleasant and cooperative Currently on room air Nonfocal neuroexam No active crackles or wheezing noted 1+ edema bilateral lower extremities. Data 04/08/24 05:17 04/09/24 04:55 A&P Assessment and plan (1) Congestive heart failure: Qualifiers: Heart failure type: biventricular Qualified Code(s): I50.82 - Biventricular heart failure (2) Atrial fibrillation: Qualifiers: Atrial fibrillation type: paroxysmal Qualified Code(s): I48.0 - Paroxysmal atrial fibrillation (3) Elevated d-dimer: Plan Atrial fibrillation with rapid ventricular response: History of cardioversion in past. Heart rate stable while resting in bed. Continue with amiodarone 400 mg twice daily. Metoprolol 50 mg twice daily. Eliquis 5 mg twice daily. Plan to ambulate patient today monitor heart rate. Congestive heart failure: Systolic and diastolic in nature. Echocardiogram done shows an EF of 25% with mild pulmonary hypertension and PASP of 35 mmHg. Currently euvolemic. Continue Lasix 40 mg twice daily. Full code Eliquis will be sufficient for DVT prophylaxis Protonix OPD prophylaxis Discharge planning: Plan to discharge in next 24 hours. Plan to monitor hemodynamics given soft blood pressures as patient ambulate Attestations 2 Medical Necessity Statement*: Requires further hospitalization for management of A-fib with RVR, diastolic and systolic congestive heart failure Diagnoses Biventricular congestive heart failure I50.82 Heart failure type: biventricular Paroxysmal atrial fibrillation I48.0 Atrial fibrillation type: paroxysmal Elevated d-dimer R79.89
--- NOTE | 2024-04-10 17:09 | PC.NURSE ---
Patient has been up ambulating the [place] 3 times today. Vitals remain stable.
--- NOTE | 2024-04-10 18:06 | PC.NURSE ---
Provider was updated that the last three blood pressures were soft. Patient is due for his 1800 medications: metoprolol and amiodarone. Per providers orders amiodarone is being held and metoprolol is to be given.
[2024-04-10] MEDS: sodium chloride 0.9% 250 ML IV (19:57)
--- NOTE | 2024-04-10 21:00 | PC.NURSE ---
Called and spoke with regarding patient with low BP, 75/52 has been running low in the 80s SBP previously. Patient is asymptomatic. reviewed patients chart and ordered bolus of 250ml, med adjustments also made. said goal is to keep BP above 90 systolic. After bolus patient BP did improve to 91/54.
[2024-04-11] VITALS (12 sets, daily range): BP systolic 90–102; BP diastolic 57–70; PULSE 57–69; RESP 16–20; TEMP 36.3–37; O2SAT 95–99
--- NOTE | 2024-04-11 00:57 | PC.NURSE ---
Spoke with regarding patients BP dropping again 81/53, still asymptomatic. said recheck BPs 2-3hrs throughout night, will treat is BP drops into 70s or patients become symptomatic. Keep patient bedrest for now.
[2024-04-11 07:12] LABS: Basophils # 0.1 10^3/uL (0.0-0.1); Basophils % 1.3 %; Eosinophils # 0.4 10^3/uL (0.0-0.8); Eosinophils % 5.9 %; Hematocrit 45.4 % (37-53); Lymphocytes % 32.1 %; Mean Corpuscular Hemoglobin 31.1 pg (27-33); Mean Platelet Volume 11.7 fL (7.4-10.4); Monocytes # 0.4 10^3/uL (0.2-0.9); Neutrophils % 54.1 %; Nucleated Red Blood Cells % 0 %; Platelet Count 182 10^3/cmm (157-399); Red Blood Count 4.83 10^6/uL (3.85-5.65); White Blood Count 6.29 10^3/uL (3.29-11.43)
--- NOTE | 2024-04-11 07:31 | PM.PN ---
Subjective Subjective: Cosmo continues to slowly improve. His urine output has dropped off and he had a slightly positive fluid balance yesterday. Heart rates have been in the high 50s and low 60s. Blood pressure has been soft and now consistently below 100 mmHg systolic. Vitals/I&O/Wt Last Vital Signs Temp 97.6 F 04/11/24 07:24 Pulse 59 L 04/11/24 07:24 Resp 16 04/11/24 07:24 BP 97/63 04/11/24 07:24 Pulse Ox 95 04/11/24 07:24 O2 Del Method Room Air 04/11/24 07:24 04/10/24 04/11/24 04/11/24 22:59 06:59 14:59 Intake Total 2130 / 3090 100 / 3190 Output Total 1175 / 2175 552 / 2727 Balance 955 / 915 -452 / 463 Weight last 48 hrs Weight 237 lb Weight 265 lb Weight 237 lb Weight 236 lb 2 oz Weight 237 lb 3.2 oz Physical Exam Narrative: GENERAL: In general he looks comfortable HEENT: Exam within normal limits. NECK: Supple without jugular vein distention. The carotid upstroke is normal without bruits. BACK: Exam normal. LUNGS: Clear. HEART: Regular rate and rhythm. ABDOMEN: Benign without organomegaly or tenderness. EXTREMITIES: 2+ edema NEUROLOGIC: Exam normal. SKIN: Unremarkable. Data 04/11/24 06:36 04/09/24 04:55 A&P Assessment and plan (1) Atrial fibrillation: Qualifiers: Atrial fibrillation type: paroxysmal Qualified Code(s): I48.0 - Paroxysmal atrial fibrillation (2) Congestive heart failure: Qualifiers: Heart failure type: biventricular Qualified Code(s): I50.82 - Biventricular heart failure (3) Mitral regurgitation: Qualifiers: Cardiac valve disease etiology: nonrheumatic Qualified Code(s): I34.0 - Nonrheumatic mitral (valve) insufficiency (4) Tricuspid regurgitation: Qualifiers: Cardiac valve disease etiology: nonrheumatic Qualified Code(s): I36.1 - Nonrheumatic tricuspid (valve) insufficiency (5) Anticoagulation adequate with anticoagulant therapy: Plan I am going to decrease the metoprolol to 25 mg twice daily and discontinue the lisinopril. This is due to bradycardia and hypotension. The other medicines will continue as is. He should be up and around. We are nearing discharge. Attestations Medical Necessity Statement*: Hospitalization for atrial fibrillation and heart failure. Coding Level of Care Code Acute Code for [facility] Fwd Diagnoses Paroxysmal atrial fibrillation I48.0 Atrial fibrillation type: paroxysmal Biventricular congestive heart failure I50.82 Heart failure type: biventricular Nonrheumatic mitral valve regurgitation I34.0 Cardiac valve disease etiology: nonrheumatic Nonrheumatic tricuspid valve regurgitation I36.1 Cardiac valve disease etiology: nonrheumatic Anticoagulation adequate with anticoagulant therapy Z79.01
[2024-04-11 07:34] LABS: Magnesium 2.3 mg/dL (1.7-2.3)
[2024-04-11 07:35] LABS: Alanine Aminotransferase 40 U/L (0-41); Albumin Level 4.1 g/dL (3.5-5.2); Alkaline Phosphatase 84 U/L (40-130); Anion Gap 15.3 (5-19); Aspartate Amino Transferase 42 U/L (0-40); Blood Urea Nitrogen 35 mg/dL (8-23); Calcium 9.4 mg/dL (8.5-10.5); Carbon Dioxide 30 mmol/L (22-29); Chloride 94 mmol/L (98-107); Creatinine Clr Calc Pharmacy 69.5496; Glomerular Filtration Rate 47.6 mL/min (90-130); Glucose 98 mg/dL (65-115); Osmolality Calculated 288 mOsm/kg (285-295); Potassium 4.3 mmol/L (3.5-5.1); Sodium 135 mmol/L (136-145); Total Protein 7.1 g/dL (6.6-8.7)
[2024-04-11 07:51] LABS: Folate Level 9.5 ng/mL (4.5-32.2)
[2024-04-11] MEDS: sennosides-docusate Tablet 1 TAB PO (08:45)
[2024-04-11] MEDS: apixaban 5 mg Tablet PO ×2 (08:45→20:52)
[2024-04-11] MEDS: pantoprazole DR 40 mg Tablet PO (08:45)
[2024-04-11] MEDS: spironolactone 25 mg Tablet 12.5 MG PO (08:45)
[2024-04-11] MEDS: amiodarone 200 mg Tablet 400 MG PO (08:47)
--- NOTE | 2024-04-11 09:40 | PC.NURSE ---
Metoprolol 25mg held this morning per [employer] Sales Advisor in regards to heart rate <60 and hypotension.
--- NOTE | 2024-04-11 10:47 | PC.NURSE ---
Physician Orders: Furosemide 40mg PO once
[2024-04-11] MEDS: FUROsemide 40 mg Tablet PO (11:34)
--- NOTE | 2024-04-11 16:05 | P.PN_ITS ---
Subjective 2 Subjective: Overnight patient had episode of hypotension with systolic blood pressure down to 75 mmHg for which she required to 50 cc of fluid bolus. After that mean artery pressure have maintained over 65. Today morning examination patient is awake and alert. Denies any nausea, vomiting, headache. Denies any dizziness. Maintaining well on room air. Heart rate mostly in low to high 60s. Vitals/I&O/Wt Last Vital Signs Temp 97.6 F 04/11/24 07:24 Pulse 60 04/11/24 11:49 Resp 16 04/11/24 07:47 BP 93/59 04/11/24 11:49 Pulse Ox 96 04/11/24 10:53 O2 Del Method Room Air 04/11/24 10:53 04/11/24 04/11/24 04/11/24 06:59 14:59 22:59 Intake Total 100 / 3190 1400 / 1400 Output Total 552 / 2727 1000 / 1000 Balance -452 / 463 400 / 400 Weight last 48 hrs Weight 107.501 kg Weight 120.202 kg Weight 107.501 kg Weight 107.104 kg Weight 107.592 kg Physical Exam 2 Narrative: resting comfortably in bed Heart rate in 90s A-fib, rate controlled Pleasant and cooperative Currently on room air Nonfocal neuroexam No active crackles or wheezing noted 1+ edema bilateral lower extremities. Data 04/11/24 06:36 04/11/24 06:36 A&P Assessment and plan (1) Congestive heart failure: Qualifiers: Heart failure type: biventricular Qualified Code(s): I50.82 - Biventricular heart failure (2) Atrial fibrillation: Qualifiers: Atrial fibrillation type: paroxysmal Qualified Code(s): I48.0 - Paroxysmal atrial fibrillation (3) Pulmonary HTN: (4) Mitral regurgitation: Qualifiers: Cardiac valve disease etiology: nonrheumatic Qualified Code(s): I34.0 - Nonrheumatic mitral (valve) insufficiency (5) Acute kidney injury: Plan Atrial fibrillation with rapid ventricular response: History of cardioversion in past. Heart rate stable while resting in bed. Episodes of bradycardia with heart rate mostly running in 60s now. Continue with amiodarone for 100 mg daily. Will plan to switch to 200 mg daily in 1 week. Switch metoprolol to 25 mg twice daily. Appreciate cardiology recommendations. Continue with Eliquis 5 mg twice daily. Plan to ambulate patient further while monitoring heart rate today. Hypotension: Most likely in setting of dehydration from overdiuresis. Goal blood pressure over mean of 65 mmHg. Continue to monitor for now. Hold off on any further lisinopril. Acute kidney injury: Could be in the setting of dehydration and hypotension as above. Cannot rule out CRS. Patient seems euvolemic today. Does have EF of 25%. Lasix 40 mg one-time by monitoring for hypotension and check orthostatics. Repeat BMP in evening. Congestive heart failure: Systolic and diastolic in nature. Echocardiogram done shows an EF of 25% with mild pulmonary hypertension and PASP of 35 mmHg. Lasix as above. Continue with spironolactone. Holding off on lisinopril as above. Full code Eliquis will be sufficient for DVT prophylaxis Protonix OPD prophylaxis Discharge planning: Plan to discharge in next 24 hours. Plan to monitor hemodynamics given soft blood pressures as patient ambulate Attestations 2 Medical Necessity Statement*: Requires further hospitalization for management of A-fib with RVR with current bradycardia, hypotension, acute kidney injury in a patient with systolic congestive heart failure with severe LV dysfunction and EF of 25% Diagnoses Biventricular congestive heart failure I50.82 Heart failure type: biventricular Paroxysmal atrial fibrillation I48.0 Atrial fibrillation type: paroxysmal Pulmonary HTN I27.20 Nonrheumatic mitral valve regurgitation I34.0 Cardiac valve disease etiology: nonrheumatic Acute kidney injury N17.9
[2024-04-11] MEDS: metoprolol tartrate 25 mg Tablet PO (17:25)
[2024-04-11 17:45] LABS: Anion Gap 14.6 (5-19); Blood Urea Nitrogen 36 mg/dL (8-23); Calcium 9.6 mg/dL (8.5-10.5); Carbon Dioxide 29 mmol/L (22-29); Chloride 97 mmol/L (98-107); Creatinine Clr Calc Pharmacy 69.5496; Glomerular Filtration Rate 47.6 mL/min (90-130); Glucose 104 mg/dL (65-115); Osmolality Calculated 291 mOsm/kg (285-295); Potassium 4.6 mmol/L (3.5-5.1); Sodium 136 mmol/L (136-145)
[2024-04-12] VITALS (8 sets, daily range): BP systolic 94–103; BP diastolic 57–66; PULSE 55–66; RESP 16–18; TEMP 36.4–36.6; O2SAT 92–98; BMI 28.5
[2024-04-12 05:07] LABS: Basophils # 0.1 10^3/uL (0.0-0.1); Basophils % 1.3 %; Eosinophils # 0.3 10^3/uL (0.0-0.8); Eosinophils % 5.6 %; Lymphocytes # 1.9 10^3/uL (0.8-4.8); Lymphocytes % 33.7 %; Mean Corpuscular HGB Conc 33.1 g/dL (30-55); Mean Corpuscular Volume 93.5 fl (82-101); Mean Platelet Volume 11.9 fL (7.4-10.4); Monocytes # 0.4 10^3/uL (0.2-0.9); Monocytes % 7.6 %; Neutrophils # 2.84 10^3/uL (1.8-7.7); Neutrophils % 51.1 %; Nucleated Red Blood Cells % 0 %; Platelet Count 163 10^3/cmm (157-399); Red Blood Count 4.49 10^6/uL (3.85-5.65); White Blood Count 5.55 10^3/uL (3.29-11.43)
[2024-04-12 05:29] LABS: Alanine Aminotransferase 36 U/L (0-41); Albumin Level 3.9 g/dL (3.5-5.2); Alkaline Phosphatase 79 U/L (40-130); Anion Gap 14.3 (5-19); Aspartate Amino Transferase 32 U/L (0-40); Blood Urea Nitrogen 33 mg/dL (8-23); Calcium 9.1 mg/dL (8.5-10.5); Carbon Dioxide 27 mmol/L (22-29); Chloride 100 mmol/L (98-107); Globulin 2.3 g/dL (1.3-4.6); Glomerular Filtration Rate 56.1 mL/min (90-130); Glucose 116 mg/dL (65-115); Osmolality Calculated 292 mOsm/kg (285-295); Potassium 4.3 mmol/L (3.5-5.1); Sodium 137 mmol/L (136-145); Total Bilirubin 0.8 mg/dL (0.15-1.2); Total Protein 6.2 g/dL (6.6-8.7)
[2024-04-12 05:30] LABS: Magnesium 2.4 mg/dL (1.7-2.3)
[2024-04-12 05:35] LABS: Creatinine Clr Calc Pharmacy 79.9433
--- NOTE | 2024-04-12 07:44 | P.PN_ITS ---
Subjective 2 Subjective: Cosmo is stable. Uneventful night. Yesterday's creatinine and BUN went up so his Lasix was held. His blood pressure had been soft and so we held the CK inhibitor. His heart rates were low so intermittently we were holding the beta- gricel. He is back on the standard dose 25 mg twice daily. He remains on the amiodarone. His creatinine is a little better today 1.3 with a BUN of 33. He went back into sinus rhythm on his own yesterday and is in sinus rhythm this morning. Vitals/I&O/Wt Last Vital Signs Temp 97.6 F 04/12/24 07:14 Pulse 62 04/12/24 07:14 Resp 17 04/12/24 07:14 BP 103/66 04/12/24 07:14 Pulse Ox 98 04/12/24 07:14 O2 Del Method Room Air 04/12/24 07:14 04/11/24 04/12/24 04/12/24 22:59 06:59 14:59 Intake Total 400 / 2600 Output Total 300 / 2100 850 / 2950 Balance -300 / 100 -450 / -350 Weight last 48 hrs Weight 235 lb Weight 235 lb Weight 237 lb Weight 265 lb Weight 237 lb Physical Exam 2 Narrative: GENERAL: Generally looks and feels well HEENT: Exam within normal limits. NECK: Supple without jugular vein distention. The carotid upstroke is normal without bruits. BACK: Exam normal. LUNGS: Clear. HEART: Regular rate and rhythm. ABDOMEN: Benign without organomegaly or tenderness. EXTREMITIES: No edema. NEUROLOGIC: Exam normal. SKIN: Unremarkable. Data 04/12/24 04:25 04/12/24 04:25 A&P Assessment and plan (1) Atrial fibrillation: Qualifiers: Atrial fibrillation type: paroxysmal Qualified Code(s): I48.0 - Paroxysmal atrial fibrillation (2) Congestive heart failure: Qualifiers: Heart failure type: biventricular Qualified Code(s): I50.82 - Biventricular heart failure (3) Mitral regurgitation: Qualifiers: Cardiac valve disease etiology: nonrheumatic Qualified Code(s): I34.0 - Nonrheumatic mitral (valve) insufficiency (4) Tricuspid regurgitation: Qualifiers: Cardiac valve disease etiology: nonrheumatic Qualified Code(s): I36.1 - Nonrheumatic tricuspid (valve) insufficiency (5) Anticoagulation adequate with anticoagulant therapy: (6) Pulmonary HTN: Plan Fortunately he is back in sinus rhythm. Achieving and maintaining sinus rhythm will go a long way to helping his left ventricle improve. Upon his discharge, I would not send him home on an CK inhibitor because of his blood pressure. He should go on Aldactone 12.5 mg daily, Eliquis 5 mg twice daily, amiodarone 200 mg daily and metoprolol tartrate 25 mg twice daily. For the time being I would not send him home on Lasix. He should then follow-up with either his primary care physician or the nurse practitioner in our office in a week to 10 days for a chemistry panel and reassessment to make sure that he maintains the correct medications. 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 and Moderate Time for a total of 30 minutes, includes reviewing past or interval history, examining/interviewing patient, counseling patient/family/other support, updating patient/family/other support, discussing plan of care with staff, communicating with other healthcare providers, documenting encounter and coordinating care Diagnoses Paroxysmal atrial fibrillation I48.0 Atrial fibrillation type: paroxysmal Biventricular congestive heart failure I50.82 Heart failure type: biventricular Nonrheumatic mitral valve regurgitation I34.0 Cardiac valve disease etiology: nonrheumatic Nonrheumatic tricuspid valve regurgitation I36.1 Cardiac valve disease etiology: nonrheumatic Anticoagulation adequate with anticoagulant therapy Z79.01 Pulmonary HTN I27.20
[2024-04-12] MEDS: spironolactone 25 mg Tablet 12.5 MG PO (08:56)
[2024-04-12] MEDS: amiodarone 200 mg Tablet 400 MG PO (08:56)
[2024-04-12] MEDS: metoprolol tartrate 25 mg Tablet PO (08:56)
[2024-04-12] MEDS: apixaban 5 mg Tablet PO (08:57)
[2024-04-12] MEDS: pantoprazole DR 40 mg Tablet PO (08:57)
[2024-04-12] MEDS: sennosides-docusate Tablet 1 TAB PO (08:57)
--- NOTE | 2024-04-12 12:01 | P.DS_ITS ---
Discharge Providers Date of Admission: 04/06/24 15:32 Date of Discharge: April 12, 2024 Attending Provider at Admission: Paula Hernandez MD Attending Provider at Discharge: Koko Mcallister MD Primary Care Provider: Anni Terrazas MD Diagnoses at Discharge Discharge Diagnosis (1) Atrial fibrillation: Status: Acute Qualifiers: Atrial fibrillation type: paroxysmal Qualified Code(s): I48.0 - Paroxysmal atrial fibrillation (2) Congestive heart failure: Status: Acute Qualifiers: Heart failure type: biventricular Qualified Code(s): I50.82 - Biventricular heart failure (3) Mitral regurgitation: Status: Acute Qualifiers: Cardiac valve disease etiology: nonrheumatic Qualified Code(s): I34.0 - Nonrheumatic mitral (valve) insufficiency (4) Tricuspid regurgitation: Status: Acute Qualifiers: Cardiac valve disease etiology: nonrheumatic Qualified Code(s): I36.1 - Nonrheumatic tricuspid (valve) insufficiency (5) Anticoagulation adequate with anticoagulant therapy: Status: Acute (6) Pulmonary HTN: Status: Acute Reason for Visit Reason for Visit: SOB, leg swelling Brief History: History as per HPI. Cosmo Blanc is a 63 year old male with history of ablation roughly 3 years ago, has not taken metoprolol Lasix or anticoagulating agent for last 3 years, lives with his family, present to the hospital for chief complaint of worsening of swelling and palpitations. Patient is stating that for last 3 months he has been noticing weight gain swelling of his legs, swelling has worsened and it has involve his genitalia now extending all the way up towards his umbilicus he has not noticed any significant chest pain, he is working at a [employer]. Hospital Course Hospital Course Patient was admitted to the hospital with concerns for A-fib with RVR and congestive heart failure. He was started on Cardizem drip, full dose anticoagulation with Lovenox and diuretics. Cardiology was consulted with possible concerns for need of cardioversion. Patient was later transitioned to IV amiodarone. Along with low-dose metoprolol. He responded well to the treatment and has been on room air and baseline oxygen supplementation for last 48 to 72 hours. Patient's heart rate has been improving as well. His medications were further adjusted. He has been discharged back home with counseling about lifestyle modification congestive heart failure, new dose of amiodarone, dose of metoprolol and Eliquis twice daily. He is to follow-up with nurse practitioner cardiology within next 10 days. Physical Exam Narrative: General: No acute distress, AO x3 HEENT: PERRLA, pupils bilaterally equal and reactive Chest: Normal vesicular breath sounds, no added sounds, equal good air entry bilaterally CVS: S1-S2 regular, Pansystolic murmur present at apex radiating to mid axillary line, pansystolic murmur at fourth intercostal left retrosternal area, no tachycardia, no gallops, no rubs Abdomen: Soft, nontender, no organomegaly, bowel sounds present Neuro: No focal deficits, no facial deformity, AO x3, power 5/5 in all limbs Discharge Data Studies Completed and Pending Completed Studies During Hospitalization Category Date Time Status CT angio chest PE protcl [id number] Routine Cat Scan 04/07/24 09:30 Completed XR chest 1V portable [id number] Stat Exams 04/06/24 13:04 [place] [id number] Routine Ultrasound 04/06/24 17:45 Completed CV. echo complete* [id number] Routine Ultrasound 04/06/24 15:57 Completed Pending at discharge Category Date Time Status MAG [Magnesium] AM LABS Lab 04/13/24 04:00 Ordered Radiology Impressions Chest X-Ray 04/06/24 13:04 IMPRESSION: 1. Negative chest. Chest CTA 04/07/24 09:30 IMPRESSION: 1. No pulmonary embolism. 2. Diffuse bronchial wall thickening with mucous plugging, concerning for bronchitis. COMMENTS: Consistent with the [employer]'s Incidental Findings Committee white paper (J Am Amari Radiol 2018): Any incidental renal lesion less than 1 cm or classified as too small to characterize, or any incidental cystic renal lesion characterized as simple-appearing, is likely benign. No follow-up imaging is recommended for these lesions per consensus recommendations based on imaging criteria. Echocardiogram: CONCLUSIONS 1-Moderately increased left ventricular cavity size. Moderately increased left ventricular cavity size. Severely decreased left ventricular systolic function. Estimated ejection fraction 25 to 30% with severe global hypokinesis. In the presence of atrial fibrillation diastolic estimation may not be accurate. 2-Moderately thickened mitral valve. Severe mitral valve regurgitation. 3-Thickened tricuspid valve. Severe tricuspid valve regurgitation. 4-Pulmonary artery systolic pressure is at least 55 mmHg 5-IVC is severely dilated right atrial pressure at least 20 mmHg 6-There is no pericardial effusion. Davis Anderson MD (Electronically Signed) Final Date: 06 April 2024 Laboratory Results WBC 5.55 10^3/uL (3.29-11.43) 04/12/24 04:25 RBC 4.49 10^6/uL (3.85-5.65) 04/12/24 04:25 Hgb 13.90 g/dL (11.27-16.99) 04/12/24 04:25 Hct 42.0 % (37-53) 04/12/24 04:25 MCV 93.5 fl (82-101) 04/12/24 04:25 MCH 31.0 pg (27-33) 04/12/24 04:25 MCHC 33.1 g/dL (30-55) 04/12/24 04:25 RDW 15.0 % (12.1-15.1) 04/12/24 04:25 Plt Count 163 10^3/cmm (157-399) 04/12/24 04:25 MPV 11.9 fL (7.4-10.4) H 04/12/24 04:25 Neut % (Auto) 51.1 % 04/12/24 04:25 Lymph % (Auto) 33.7 % 04/12/24 04:25 [place] % (Auto) 7.6 % 04/12/24 04:25 Eos % (Auto) 5.6 % 04/12/24 04:25 Baso % (Auto) 1.3 % 04/12/24 04:25 Neut # (Auto) 2.84 10^3/uL (1.8-7.7) 04/12/24 04:25 Lymph # (Auto) 1.9 10^3/uL (0.8-4.8) 04/12/24 04:25 [place] # (Auto) 0.4 10^3/uL (0.2-0.9) 04/12/24 04:25 Eos # (Auto) 0.3 10^3/uL (0.0-0.8) 04/12/24 04:25 Baso # (Auto) 0.1 10^3/uL (0.0-0.1) 04/12/24 04:25 Nucleated RBC % (auto) 0 % 04/12/24 04:25 Nucleated RBCs # 0.0 /100WBC 04/12/24 04:25 D-Dimer 2.20 ug/mLFEU (0-0.59) H 04/06/24 13:17 Sodium 137 mmol/L (136-145) 04/12/24 04:25 Potassium 4.3 mmol/L (3.5-5.1) 04/12/24 04:25 Chloride 100 mmol/L (98-107) 04/12/24 04:25 Carbon Dioxide 27 mmol/L (22-29) 04/12/24 04:25 Anion Gap 14.3 (5-19) 04/12/24 04:25 BUN 33 mg/dL (8-23) H 04/12/24 04:25 Creatinine 1.3 mg/dL (0.7-1.2) H 04/12/24 04:25 GFR Calculation 56.1 mL/min (90-130) L 04/12/24 04:25 Glucose 116 mg/dL (65-115) H 04/12/24 04:25 Estimat Average Glucose 111 04/06/24 13:17 Hemoglobin A1c 5.5 % (4.0-6.0) 04/06/24 13:17 Calculated Osmolality 292 mOsm/kg (285-295) 04/12/24 04:25 Calcium 9.1 mg/dL (8.5-10.5) 04/12/24 04:25 Magnesium 2.4 mg/dL (1.7-2.3) H 04/12/24 04:25 Iron 72 ug/dL (59-158) 04/10/24 04:55 TIBC 322 mcg/dl 04/10/24 04:55 % Saturation 22.3 % (20-50) 04/10/24 04:55 Unsat Iron Binding 250 ug/dL (112-347) 04/10/24 04:55 Total Bilirubin 0.8 mg/dL (0.15-1.2) 04/12/24 04:25 AST 32 U/L (0-40) 04/12/24 04:25 ALT 36 U/L (0-41) 04/12/24 04:25 Alkaline Phosphatase 79 U/L (40-130) 04/12/24 04:25 Troponin T Baseline 17 ng/L (0-15) H 04/06/24 13:17 Troponin T 120 Minute 15.61 ng/L (0-15) H 04/06/24 15:13 Delta Troponin T -1.39 ABS# (0-10) L 04/06/24 15:13 Troponin T Hi Sens 6Hr 17.89 ng/L (0-15) H 04/06/24 19:18 Troponin T Hi Sens 6Hr Delta 0.89 ng/L (0-12) 04/06/24 19:18 NT-Pro-B Natriuret Pep 6444 pg/mL (0-125) H 04/06/24 13:17 Total Protein 6.2 g/dL (6.6-8.7) L 04/12/24 04:25 Albumin 3.9 g/dL (3.5-5.2) 04/12/24 04:25 Globulin 2.3 g/dL (1.3-4.6) 04/12/24 04:25 Triglycerides 67 mg/dL (0-150) 04/06/24 13:17 Cholesterol 141 mg/dL (0-200) 04/06/24 13:17 LDL Cholesterol, Calc 81 mg/dL (50-129) 04/06/24 13:17 HDL Cholesterol 47 mg/dL (60-100) L 04/06/24 13:17 LDL/HDL Ratio 1.72 RATIO (0.00-3.22) 04/06/24 13:17 Cholesterol/HDL Ratio 3.00 mg/dL (1.0-5.00) 04/06/24 13:17 Vitamin B12 446 pg/mL (232-1245) 04/10/24 04:55 Folate 9.5 ng/mL (4.5-32.2) 04/11/24 06:36 TSH 1.77 uIU/mL (0.27-4.20) 04/06/24 13:17 TSH 1.79 uIU/mL (0.27-4.20) 04/06/24 13:17 Vitals Last Vital Signs Temp 97.6 F 04/12/24 11:20 Pulse 61 04/12/24 11:20 Resp 18 04/12/24 11:20 BP 99/66 04/12/24 11:20 Pulse Ox 98 04/12/24 11:20 O2 Del Method Room Air 04/12/24 11:20 Discharge Plan Discharge Patient Disposition: Home Condition: Stable Prescriptions: New Pacerone 200 mg Tablet 200 mg PO DAILY Qty: 60 0RF Rx Instructions: 400 mg daily for next 3 days followed by 200 mg daily furosemide 40 mg Tablet 40 mg PO DAILY PRN (Reason: increased weight by 5 lbs) Qty: 14 0RF spironolactone 25 mg Tablet 12.5 mg PO DAILY Qty: 15 0RF metoprolol tartrate 25 mg Tablet 25 mg PO BID Qty: 60 0RF Eliquis 5 mg Tablet 5 mg PO BID@0900,2100 Qty: 60 0RF Discharge Orders: Discharge Order (Routine); Ordered 04/12/24 Ordered By: Koko Mcallister Referrals: Anni Terrazas MD [Primary Care Provider] - 4-7 days (We have notified your physician's clinic of the need for a follow-up appointment to be scheduled. If you have not heard from them within the next 2 business days, please call them directly. ) Natalia Wu FNP [Nurse Practitioner] - 05/03/24 2:30 pm () Discharge Diet: Cardiac Discharge Activity: Resume usual activity and Increase activity as tolerated Patient Instructions: Anticoagulation Therapy, Metoprolol (By mouth), Spironolactone (By mouth), Furosemide (By mouth) (Lasix), Amiodarone (By mouth) (Cordarone, Pacerone), Apixaban (By mouth) (Eliquis), Heart Failure (DC), A-fib (Atrial Fibrillation) (DC), CHF Stoplight, Opioid Safety Activity Restrictions/Additional Instructions: Restrict fluid intake to less than 1500 cc, salt intake to less than 2 g daily. Advised to check his weight daily at home. Is advised that weight today would be the dry weight and if body weight increases by around 5 pounds, patient is to take an extra dose of Lasix daily till body weight comes down to weight today. If not able to come down to dry body weight in 1 week, then is to call cardiology office for further recommendations. Patient was counseled in detail to take medications regularly as prescribed. Check a blood pressure daily. Maintain a blood pressure diary and follow-up with a primary care provider and with the cardiology office. Discharge Attestations Time Spent in Discharge Care*: greater than 30 min Specific Discharge Activities: educating patient, discussing with pcp/other providers, discussing with director of casework services/social workers/dc planners, documenting/other paperwork and evaluating patient/reviewing data Quality Metrics Clinical Quality Measures [ No reported AMI, CVA or VTE this stay] Coding Level of Care Code 55682 Total time (in minutes) for Discharge: 60 Diagnoses Paroxysmal atrial fibrillation I48.0 Atrial fibrillation type: paroxysmal Biventricular congestive heart failure I50.82 Heart failure type: biventricular Nonrheumatic mitral valve regurgitation I34.0 Cardiac valve disease etiology: nonrheumatic Nonrheumatic tricuspid valve regurgitation I36.1 Cardiac valve disease etiology: nonrheumatic Anticoagulation adequate with anticoagulant therapy Z79.01 Pulmonary HTN I27.20
--- NOTE | 2024-04-12 13:45 | PC.NURSE ---
Discharge Note Patient discharged to [] via [] accompanied by []. Discharge instructions reviewed with patient and/or insurance representative. Mobile pharmacy medications and/or prescriptions provided. Belongings/home medications returned.
--- NOTE | 2024-04-12 13:45 | PC.NURSE ---
Discharge Note Patient discharged to [home] via [w/c to main entrance of hosptal] accompanied by [a volunteer]. Discharge instructions reviewed with patient and/or b2b outside sales representative. Mobile pharmacy medications and/or prescriptions provided. Belongings/home medications returned.
== END 2024-04-12 13:45 | disposition home or self-care (01) | DRG 309 ==
LOC: ER 14:29 → CSU 15:32 → MEDSURG 04-07 18:48
PROVIDERS: Emergency Medicine; Internal Medicine; Admitting Provider Internal Medicine; Emergency Provider Family Medicine; PCP Family Medicine; Visit Provider Student in an Organized Health Care Education/Training Program
DX: I48.0 Paroxysmal atrial fibrillation (principal); N17.9 Acute kidney failure, unspecified; I50.82 Biventricular heart failure; I34.0 Nonrheumatic mitral (valve) insufficiency; I07.1 Rheumatic tricuspid insufficiency; I27.20 Pulmonary hypertension, unspecified; Z79.01 Long term (current) use of anticoagulants; Z72.0 Tobacco use; R00.1 Bradycardia, unspecified; I95.9 Hypotension, unspecified
CPT/HCPCS: 36415; 71045; 71275; 80048; 80053; 80061; 82607; 82746; 83036; 83540; 83550; 83735; 83880; 84443; 84484; 85025; 85378; 93005; 93306; 93970; 96365; 96366; 96372; 96375; 96376; 99285; A4222; J0283; J1650; J1940; J3490; J7050; Q9967

== ENCOUNTER → 2024-05-03 14:24 | Outpatient (BNVA) | payer OTHER, SELFPAY | PROVIDERS: PCP Family Medicine; Visit Provider Nurse Practitioner Family | DX: I48.91 Unspecified atrial fibrillation (principal); Z79.01 Long term (current) use of anticoagulants | CPT/HCPCS: 99213 ==